=== PATIENT | male | born 1955 | race Caucasian/White ===

== ENCOUNTER → 2021-07-07 14:06 | Outpatient (BNVA) | payer SELFPAY | PROVIDERS: Visit Provider Nurse Practitioner Family | DX: I50.9 Heart failure, unspecified (principal) | CPT/HCPCS: 71046 ==

== ENCOUNTER 2021-07-07 15:49 | Inpatient (IN) | payer SELFPAY ==
[2021-07-07] VITALS (10 sets, daily range): BP systolic 118–133; BP diastolic 79–93; PULSE 89–101; RESP 18–20; TEMP 36–37; O2SAT 97–98; BMI 29.4
--- NOTE | 2021-07-07 16:21 | XRR_ITS ---
PROCEDURE INFORMATION: Exam: XR Chest Exam date and time: 07/07/2021 4:21 PM Age: 66 years old Clinical indication: Cough and dyspnea; Additional info: Dyspnea/cough TECHNIQUE: Imaging protocol: XR of the chest. Views: 1 view. Total images: 1 COMPARISON: CR XR chest 2V* [id number] 07/07/2021 2:05 PM FINDINGS: Lungs: No visible active interstitial or alveolar airspace disease. COPD/chronic bronchitis. Pleural spaces: Unremarkable. No pleural effusion. No pneumothorax. Heart/Mediastinum: Marked cardiomegaly. Arteriosclerosis. Bones/joints: Unremarkable. XR/XR chest 1V portable [id number] IMPRESSION: 1. Nonacute. 2. Marked cardiomegaly.
--- NOTE | 2021-07-07 16:22 | ECG_ITS ---
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1955 Requested By: Jorgito Nelson Order Number: [id number] Reading MD: ANDREEA ARVIZU Measurements Intervals [place] Rate: 98 P: 51 FL: 168 QRS: 51 QRSD: 101 T: 89 QT: 341 QTc: 436 Interpretive Statements SINUS RHYTHM WITH OCCASIONAL VENTRICULAR PREMATURE COMPLEXES LEFT ATRIAL ENLARGEMENT [-0.15mV P-WAVE IN V1/V2] PROBABLE INFERIOR MYOCARDIAL INFARCTION , PROBABLY OLD [35 ms Q WAVE IN II/aVF] No previous ECG available for comparison Electronically Signed On 07-07-2021 21:07:23 CDT by ANDREEA ARVIZU [id number]
[2021-07-07 16:41] LABS: Basophils # 0.1 10^3/uL (0.0-0.1); Basophils % 0.7 %; Eosinophils % 0.1 %; Hematocrit 52.8 % (42.0-52.0); Hemoglobin 17.7 g/dL (11.7-16.6); Lymphocytes # 1.6 10^3/uL (0.8-4.8); Mean Corpuscular HGB Conc 33.5 g/dL (30.0-36.0); Mean Corpuscular Hemoglobin 31.2 pg (28.0-34.0); Mean Platelet Volume 11.4 fL (7.4-10.4); Monocytes # 0.8 10^3/uL (0.2-0.9); Monocytes % 11.1 %; Neutrophils % 66.7 %; Nucleated Red Blood Cells % 0 %; Platelet Count 150 10^3/cmm (130-400); Red Blood Count 5.68 10^6/uL (4.1-5.3); Red Cell Distribution Width 14.4 % (12.1-15.1); White Blood Count 7.5 10^3/uL (4.0-10.0)
--- NOTE | 2021-07-07 16:42 | W.ED.GENADLT ---
HPI - General Adult General: Chief complaint: General Medical Stated complaint: Swollen feet,Fluid, Sent by [facility] Time Seen by Provider: 07/07/21 15:58 History of Present Illness: HPI narrative: 66-year-old male presented to the ER from one of the local clinics. He was seen there for swelling in his legs which been getting progressively worse the last couple of weeks he has some skin breakdown and drainage she denies any fever sweats or chills he has noticed a little bit of shortness of breath lately but has no orthopnea. He has no known history of coronary disease not had any chest pain denies any fever sweats or chills. No family history of coronary disease patient is not a smoker and is not diabetic. Onset (ago): week(s) Severity: moderate Relieving factors: none Exacerbating factors: none Associated symptoms: Deny chest pain, confusion, cough, diaphoresis, decreased appetite, dyspnea, fevers/chills, headache(s), malaise, nausea, rash, palpitations, seizures, short of breath, syncope, vomiting or weakness Review of Systems Const: Denies: malaise or diaphoresis ENMT: Denies: throat pain, ear or mastoid pain, nasal discharge or nasal congestion Card: Denies: chest pain, palpitations or syncope Resp: Denies: dyspnea GI: Denies: nausea or vomiting : Denies: flank pain, dysuria, urinary frequency or urinary urgency Skin/Breast: Denies: rash Neuro: Denies: headache(s) or confusion PFSH ED PFSH: Medical History (Updated 07/13/21 @ 07:07 by Jorgito Lujan DO) Abnormal transaminases Alcoholism Dilated cardiomyopathy Elevated troponin Rheumatic fever/heart disease Swelling of lower limb Surgical History (Updated 07/07/21 @ 20:04 by Elias Sprague MD) No significant past surgical history Family History (Updated 07/07/21 @ 20:15 by Elias Sprague MD) Other CAD (coronary artery disease) Congestive heart failure (CHF) Social History Smoking and tobacco status: former smoker Second hand smoke exposure: No Smoking risk assessment/counseling performed?: No Alcohol intake: never Desire information about alcohol rehabilitation?: No Counseling given: No Desire information about substance/drug rehabilitation?: No Counseling given: No Adopted: No Caregiver/support person: No Lives independently: Yes Household members: none Housing: House Marital status: Single Number of children: 0 Highest education level completed: High School Graduate service: No History of recent travel: No Physical Exam Const: COMMON NORMALS: no acute distress GENERAL APPEARANCE: cooperative and comfortable ORIENTATION/CONSCIOUSNESS: Yes awake, Yes oriented to person, Yes oriented to place and Yes oriented to time HENMT: COMMON NORMALS: normocephalic, atraumatic and hearing grossly normal bilaterally HEAD & SCALP: normocephalic and atraumatic Neck/C-Spine: COMMON NORMALS: no JVD Resp: COMMON NORMALS: normal respiratory effort, No retractions, No use of accessory muscles and clear to auscultation bilaterally AUSCULTATION: clear to auscultation bilaterally Cardio: COMMON NORMALS: no JVD, regular rate, regular rhythm and No murmurs present (Cardio) RATE: regular rate RHYTHM: regular rhythm GI: COMMON NORMALS: Soft to palpation and No hepatosplenomegaly present AUSCULTATION: Yes normoactive bowel sounds PALPATION: Yes Soft to palpation, No Tenderness to palpation present (GI), No Guarding due to palpation present (GI) and Yes No hepatosplenomegaly present Extremity: COMMON NORMALS: no calf tenderness GENERAL: Yes edema OTHER: +3 edema lower extremities with some mild skin breakdown no evidence of induration or erythema Neuro: SENSORIUM/ORIENTATION: Yes oriented to person, Yes oriented to place and Yes oriented to time Skin: COMMON NORMALS: no rashes or lesions noted GENERAL SKIN EXAM: no rashes or lesions noted Course Vital Signs: Vital signs: Vital Signs Temperature 97.5 F L 07/10/21 09:50 Pulse Rate 87 07/10/21 09:50 Respiratory Rate 20 H 07/10/21 09:50 Blood Pressure 111/77 07/10/21 09:50 Pulse Oximetry 97 07/10/21 09:50 MDM - General Adult MDM Narrative: Medical decision making narrative: Reviewed labs and x-ray. Will admit with elevated troponin congestive heart failure.Discussed with the patient and the hospitalist orders written Lab Data: Labs: Lab Results 07/07/21 07/07/21 07/07/21 Range/Units 16:31 16:31 16:31 WBC 7.5 (4.0-10.0) 10^3/ uL RBC 5.68 H (4.1-5.3) 10^6/u L Hgb 17.7 H (11.7-16.6) g/dL Hct 52.8 H (42.0-52.0) % MCV 93.0 (80-94) fl MCH 31.2 (28.0-34.0) pg MCHC 33.5 (30.0-36.0) g/dL RDW 14.4 (12.1-15.1) % Plt Count 150 (130-400) 10^3/c mm MPV 11.4 H (7.4-10.4) fL Neut % (Auto) 66.7 % Lymph % (Auto) 21.0 % [place] % (Auto) 11.1 % Eos % (Auto) 0.1 % Baso % (Auto) 0.7 % Neut # (Auto) 5.00 (1.8-7.7) 10^3/u L Lymph # (Auto) 1.6 (0.8-4.8) 10^3/u L [place] # (Auto) 0.8 (0.2-0.9) 10^3/u L Eos # (Auto) 0.0 (0.0-0.8) 10^3/u L Baso # (Auto) 0.1 (0.0-0.1) 10^3/u L Nucleated RBC % (a uto) 0 % Nucleated RBCs # 0.0 /100WBC D-Dimer (0-0.59) ug/mIFE U Sodium 132 L (136-145) mmol/L Potassium 4.6 (3.5-5.1) mmol/L Chloride 99 (98-107) mmol/L Carbon Dioxide 19 L (22-29) mmol/L Anion Gap 18.6 (5-19) BUN 28 H (8-23) mg/dL Creatinine 1.2 (0.7-1.2) mg/dL GFR Calculation 60.4 L (90-130) mL/min Glucose 117 H (65-115) mg/dL Calculated Osmolal ity 281 L (285-295) mOsm/k g Calcium 9.0 (8.5-10.5) mg/dL Total Bilirubin 1.1 (0.15-1.2) mg/dL AST 158 H (0-40) U/L ALT 123 H (0-41) U/L Alkaline Phosphata se 133 H (40-130) IU/L Troponin T Baselin e 733 H* (0-15) ng/L NT-Pro-B Natriuret Pep 38942 H (0-125) pg/mL Total Protein 5.6 L (6.6-8.7) g/dL Albumin 3.7 (3.5-5.2) g/dL Globulin 1.9 (1.3-4.6) g/dL Urine Color (Yellow) Urine Appearance (CLEAR) Urine pH (5-7) Ur Specific Gravit y (1.005-1.030) Urine Protein (Negative) Urine Glucose (UA) (Normal) Urine Ketones (Negative) Urine Blood (Negative) Urine Nitrate (Negative) Urine Bilirubin (Negative) Urine Urobilinogen (Negative) mg/dL Ur Leukocyte Marilyn ase (Negative) Urine RBC (0-2) /hpf Urine WBC (0-5) /hpf Ur Squamous Epith Cells (0-5) /hpf Amorphous Sediment Urine Bacteria (NONE) /hpf Urine Opiates Scre en (Negative) ng/mL Ur Barbiturates Sc reen (Negative) ng/mL Ur Phencyclidine S crn (Negative) ng/mL Ur Amphetamines Sc reen (Negative) ng/mL U Benzodiazepines Scrn (Negative) ng/mL Urine Cocaine Scre en (Negative) ng/mL U Marijuana (THC) Screen (Negative) ng/mL 07/07/21 07/07/21 07/07/21 Range/Units 16:31 18:01 18:01 WBC (4.0-10.0) 10^3/ uL RBC (4.1-5.3) 10^6/u L Hgb (11.7-16.6) g/dL Hct (42.0-52.0) % MCV (80-94) fl MCH (28.0-34.0) pg MCHC (30.0-36.0) g/dL RDW (12.1-15.1) % Plt Count (130-400) 10^3/c mm MPV (7.4-10.4) fL Neut % (Auto) % Lymph % (Auto) % [place] % (Auto) % Eos % (Auto) % Baso % (Auto) % Neut # (Auto) (1.8-7.7) 10^3/u L Lymph # (Auto) (0.8-4.8) 10^3/u L [place] # (Auto) (0.2-0.9) 10^3/u L Eos # (Auto) (0.0-0.8) 10^3/u L Baso # (Auto) (0.0-0.1) 10^3/u L Nucleated RBC % (a uto) % Nucleated RBCs # /100WBC D-Dimer 2.65 H (0-0.59) ug/mIFE U Sodium (136-145) mmol/L Potassium (3.5-5.1) mmol/L Chloride (98-107) mmol/L Carbon Dioxide (22-29) mmol/L Anion Gap (5-19) BUN (8-23) mg/dL Creatinine (0.7-1.2) mg/dL GFR Calculation (90-130) mL/min Glucose (65-115) mg/dL Calculated Osmolal ity (285-295) mOsm/k g Calcium (8.5-10.5) mg/dL Total Bilirubin (0.15-1.2) mg/dL AST (0-40) U/L ALT (0-41) U/L Alkaline Phosphata se (40-130) IU/L Troponin T Baselin e (0-15) ng/L NT-Pro-B Natriuret Pep (0-125) pg/mL Total Protein (6.6-8.7) g/dL Albumin (3.5-5.2) g/dL Globulin (1.3-4.6) g/dL Urine Color Yellow (Yellow) Urine Appearance Clear (CLEAR) Urine pH 5 (5-7) Ur Specific Gravit y 1.020 (1.005-1.030) Urine Protein Trace (Negative) Urine Glucose (UA) Norm (Normal) Urine Ketones Negative (Negative) Urine Blood Neg (Negative) Urine Nitrate Negative (Negative) Urine Bilirubin 1+ H (Negative) Urine Urobilinogen 1 H (Negative) mg/dL Ur Leukocyte Marilyn ase Negative (Negative) Urine RBC None (0-2) /hpf Urine WBC None (0-5) /hpf Ur Squamous Epith Cells None (0-5) /hpf Amorphous Sediment Not Reportable Urine Bacteria 1+ H (NONE) /hpf Urine Opiates Scre en Negative (Negative) ng/mL Ur Barbiturates Sc reen Negative (Negative) ng/mL Ur Phencyclidine S crn Negative (Negative) ng/mL Ur Amphetamines Sc reen Negative (Negative) ng/mL U Benzodiazepines Scrn Negative (Negative) ng/mL Urine Cocaine Scre en Negative (Negative) ng/mL U Marijuana (THC) Screen Negative (Negative) ng/mL Discharge Plan Discharge Patient Disposition: Admitted As Inpatient Admit Provider: Elias Sprague Clinical Impression: Elevated troponin, Congestive heart failure, Bilateral edema of lower extremity, Elevated transaminase level Condition: Stable Discharge Diet: Cardiac Discharge Activity: Resume usual activity Coding Level of Care Code ED Sql Server Dba Developer for New Fwd Exam Comprehensive
[2021-07-07 17:04] LABS: Troponin(5th) Baseline 733 ng/L (0-15)
[2021-07-07 17:12] LABS: Alanine Aminotransferase 123 U/L (0-41); Albumin Level 3.7 g/dL (3.5-5.2); Alkaline Phosphatase 133 IU/L (40-130); Blood Urea Nitrogen 28 mg/dL (8-23); Carbon Dioxide 19 mmol/L (22-29); Chloride 99 mmol/L (98-107); Globulin 1.9 g/dL (1.3-4.6); Glomerular Filtration Rate 60.4 mL/min (90-130); Glucose 117 mg/dL (65-115); NT Pro B Type Natriuretic Pept 11324 pg/mL (0-125); Osmolality Calculated 281 mOsm/kg (285-295); Sodium 132 mmol/L (136-145); Total Bilirubin 1.1 mg/dL (0.15-1.2); Total Protein 5.6 g/dL (6.6-8.7)
[2021-07-07 17:13] LABS: Anion Gap 18.6 (5-19); Aspartate Amino Transferase 158 U/L (0-40); Potassium 4.6 mmol/L (3.5-5.1)
--- NOTE | 2021-07-07 18:00 | PC.NURSE ---
URINE SPECIMEN COLLECTED VIA STRAIGHT CATH PATIENT TRIED TO VOID AND COULD NOT. UPON INSERTION, PATIENT VOIDED 150 ML. PATIENT TOLERATED WELL. VISITOR AT BEDSIDE. PATIENT HAS NO FURTHER NEEDS AT THIS TIME.
--- NOTE | 2021-07-07 18:22 | ECG_ITS ---
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1955 Requested By: Jorgito Nelson Order Number: [id number] Reading MD: ANDREEA ARVIZU Measurements Intervals [place] Rate: 89 P: 52 DC: 165 QRS: 37 QRSD: 102 T: 88 QT: 367 QTc: 448 Interpretive Statements SINUS RHYTHM LEFT ATRIAL ENLARGEMENT [-0.15mV P-WAVE IN V1/V2] INFERIOR MYOCARDIAL INFARCTION , PROBABLY OLD [40+ ms Q WAVE AND/OR ST/T ABNORMALITY IN II/aVF] Compared to ECG 07/07/2021 16:34:49 Ventricular premature complex(es) no longer present Myocardial infarct finding still present Electronically Signed On 07-07-2021 21:09:38 CDT by ANDREEA ARVIZU [email or web address], [id number]
[2021-07-07 18:36] LABS: Add Urine Microscopic? YES; Bilirubin Urine 1+ (Negative); Blood Urine Neg (Negative); Glucose Urine UA Norm (Normal); Ketones Urine Negative (Negative); Leukocyte Esterase Urine Negative (Negative); Nitrate Urine Negative (Negative); Protein Urine Trace (Negative); Urine Appearance Clear (CLEAR); Urine Color Yellow (Yellow); Urobilinogen Urine 1 mg/dL (Negative); pH Urine 5 (5-7)
[2021-07-07 18:37] LABS: Bacteria Urine 1+ /hpf
--- NOTE | 2021-07-07 18:38 | ECG_ITS ---
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 Interpretive Statements NAME OF STUDY: LEXISCAN SESTAMIBI STRESS TEST INDICATION: Elevated Troponin, PROCEDURE: At the baseline, the EKG revealed normal sinus rhythm with a poor R wave progression. Some nonspecific T wave changes. The baseline blood pressure was 116/86 mm Hg with a heart rate of 88 beats/min. Lexiscan was infused over a period of 20 seconds. A total of 0.4 milligrams of Lexiscan was infused. The stress phase was continued for a total of 5 minutes. Heart rate at the end of the stress phase was 92 with a blood pressure 116/85. The EKG at the peak infusion revealed no significant changes. Sestamibi was injected 20 seconds after the Lexiscan infusion. Blood pressure at the end of the recovery phase was 118/82 with a heart rate of 91 per minute. CONCLUSION: 1. No significant EKG changes with the LexiScan infusion 2. No LexiScan induced chest pain or cardiac arrhythmia 3. Normal blood pressure and heart rate response 4. Sestamibi/sestamibi perfusion scan pending; see separate report. Electronically Signed On 07-09-2021 0:40:02 CDT by Rajendra Merritt M.D. [id number]
[2021-07-07 19:20] LABS: Troponin 5 2HR Delta -21.1 ABS# (0-10)
[2021-07-07 19:21] LABS: Troponin 5 2HR 711.9 ng/L (0-15)
--- NOTE | 2021-07-07 19:23 | PM.HP ---
Providers/Chief Complaint Chief Complaint: Swollen feet,Fluid, Sent by [facility] History of Present Illness Emory Hutchins is a 66 year old male with no real follow-up with a primary care provider in couple of years presented to the ER from primary care's office. He was seen for the first time today with complains of bilateral leg swelling and discoloration for approximately 4 weeks and weeping for 1 week. Says he has some SOB with activity. Says symptoms are better in the morning and get worse through out the day. Having an increasingly difficult time walking due to swelling. Does not have a PCP and denies any daily medications. Does report history of rheumatic fever and murmur as a child. Denies pain in legs, chest pain, and weight gain. No recent history of URI symptoms. 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 No fever. No cellulitic changes. No past h/o similar LE edema. No recent changes in urien output. no dysuria. No h/o hepatitis. Drinks daily, including wine and beer. Reports making wine at home with several fruits that he collects. 12-14 oz glass consumption daily. No h/o binge drinking. Blood work in the ER showed a white count 7.5, hemoglobin of 17.7, platelet count of 150, sodium of 132, chloride of 99, bicarb of 19 with creatinine of 1.2, BUN of 28, AST/ALT of 158/123 with baseline troponin of 733 and a delta of -21 in 2 hours, proBNP of 11,000, UA negative for nitrite or leukoesterase but 1+ bacteria and chest x-ray imaging as below. Review of Systems General: Reports: 10 or more systems reviewed and unremarkable except in HPI and below Const: Denies: fever(s), chills, body aches, change in appetite, change in weight, malaise, night sweats, diaphoresis, change in sleep pattern, daytime sleepiness or snoring Eyes: Denies: change in vision, blurry vision, photophobia, eye discomfort or eye discharge ENMT: Denies: throat pain, enlarged tonsils, hoarseness, mouth pain, oral sores, dry mouth, tinnitus, nasal congestion or post nasal drip Card: Denies: chest pain, palpitations, irregular heart rhythm, edema, swelling of feet/ankles, lightheadedness, syncope, pre-syncope, dyspnea on exertion, orthopnea, leg pain with exertion or acrocyanosis Resp: Denies: dyspnea, productive cough, non-productive cough, wheezing, stridor, pain on inspiration, change in phlegm color, hemoptysis or chest congestion GI: Denies: abdominal pain, nausea, vomiting, hematemesis, coffee ground emesis, dysphagia, heartburn, diarrhea, constipation, bloating, GI cramping, change in bowel habits, pain on defecation, hematochezia or melena : Denies: flank pain, difficulty urinating, dysuria, urinary frequency, urinary urgency, urinary hesitancy, urinary dribbling, difficulty starting urination, change in urine stream, nocturia or hematuria Musc: Denies: neck pain, back pain, extremity pain, joint pain, joint swelling, joint redness, joint stiffness or limited range of motion Neuro: Denies: headache(s), numbness in extremities, weakness in extremities, sensory changes, lack of coordination, difficulty walking, frequent falls, dizziness, vertigo, confusion, Slurred speech present, difficulty communicating thoughts or seizure-like activity Psych: Denies: anxiety, depression, mood swings, panic attacks, hopelessness or irritability Endo: Denies: polyuria, polydipsia, tired all the time, cold intolerance, excessive sweating, flushing or heat intolerance Joey/Lymph: Denies: easy bruising or easy bleeding All/Imm: Denies: tongue swelling, facial swelling or acute wheezing Medications/Allergies Home Medications Medication Instructions Recorded Confirmed Last Taken Type aspirin 325 mg PO DAILY 07/07/21 07/07/21 07/06/21 History Allergies Allergy/AdvReac Type Severity Reaction Status Date / Time No Known Allergies Allergy Verified 07/07/21 21:06 PFSH Acute PFSH: Medical History (Updated 07/08/21 @ 14:34 by Elias Sprague MD) Alcoholism Rheumatic fever/heart disease Surgical History (Updated 07/07/21 @ 20:04 by Elias Sprague MD) No significant past surgical history Family History (Updated 07/07/21 @ 20:15 by Elias Sprague MD) Other CAD (coronary artery disease) Congestive heart failure (CHF) Social History Smoking and tobacco status: former smoker Second hand smoke exposure: No Smoking risk assessment/counseling performed?: No Alcohol intake: never Desire information about alcohol rehabilitation?: No Counseling given: No Desire information about substance/drug rehabilitation?: No Counseling given: No Adopted: No Caregiver/support person: No Lives independently: Yes Household members: none Housing: House Marital status: Single Number of children: 0 Highest education level completed: High School Graduate service: No History of recent travel: No Vitals/I&O/Wt Last Vital Signs Temp 96.8 F L 07/07/21 15:56 Pulse 101 H 07/07/21 18:07 Resp 18 07/07/21 16:10 BP 122/80 07/07/21 18:07 Pulse Ox 97 07/07/21 18:07 Weight last 48 hrs Weight 109.769 kg Physical Exam Narrative: EXAM NARRATIVE: General: No acute distress, AO x3 HEENT: PERRLA, pupils bilaterally equal and reactive Chest: Normal vesicular breath sounds, no added sounds, equal good air entry bilaterally CVS: S1-S2 regular, no murmurs, no tachycardia, no gallops, no rubs Abdomen: Soft, nontender, no organomegaly, bowel sounds present Neuro: No focal deficits, no facial deformity, AO x3, power 5/5 in all limbs Ext: B/L LE edema 3+ pitting up to knee level, changes of stasis dermatitis. No gross cellulitic changes. Data : 07/08/21 04:30 07/08/21 04:30 A&P Assessment and plan (1) Swelling of lower limb: Status: Acute (2) Elevated troponin: Status: Acute (3) Dilated cardiomyopathy: Status: Suspected (4) Congestive heart failure: Status: Acute (5) Abnormal transaminases: Status: Acute (6) Alcoholism: Status: Acute Additional A&P Information 66-year-old gentleman with no significant past medical history and follow-up with primary care provider presented to the ER and found to have elevated troponin, elevated proBNP, elevated D-dimer and chest x-ray suggestive of cardiomegaly. Lower limb swelling: Unlikely cellulitis as patient does not have any fever or erythema.Changes appear c/w stasis dermatitis Cannot rule out DVT or evenous insufficiency. Check D-dimer first if elevated will do lower limb Dopplers. Could be secondary to congestive heart failure. Possible dilated cardiomyopathy/congestive heart failure: Suggested secondary to elevated proBNP and troponin levels. Check echocardiogram, Lexiscan in a.m., Check HbA1c, lipid panel, blood cultures, TSH, procalcitonin, urine drug screen. N.p.o. after midnight. Lasix 40 mg IV twice daily. Coreg 3.125 mg twice daily, aspirin 81 mg oral daily. Strict input output charting. Daily weights. Check D-dimer. If elevated will check lower limb Dopplers and CTA to rule out PE. Cannot rule out DVT. Abnormal transaminases: Could be secondary to h/o alcohol use vs 2/2 dilated cardiomyopathy and congestive heart failure. Check hepatitis panel, alcohol level, urine drug screen. If needed will do liver ultrasound. For now we will hold off. Full code. Cardiac diet. Lovenox for DVT prophylaxis. Protonix for PUD prophylaxis. Attestations Medical Necessity Statement*: Admission for more than 2 midnights for evaluation of elevated proBNP, elevated troponin, ruling out cardiomyopathy, needing IV diuresis Time Spent in Patient Care: Greater than 35 minutes (>than 50% of time spent in counselling and/or direct pt care on unit). Coding Level of Care Code Acute Pressure Steamer Tender for New Bach Diagnoses Swelling of lower limb M79.89 Elevated troponin R77.8 Dilated cardiomyopathy I42.0 Congestive heart failure I50.9 Abnormal transaminases R74.8 Alcoholism F10.20
[2021-07-07 19:34] LABS: Amphetamines Screen Urine Negative (Negative); Barbiturates Screen Urine Negative (Negative); Benzodiazepines Screen Urine Negative (Negative); Cocaine Screen Urine Negative (Negative); Opiate Screen Urine Negative (Negative); PCP Screen Urine Negative (Negative); THC Screen Urine Negative (Negative)
[2021-07-07 19:39] LABS: D Dimer 2.65 ug/mIFEU (0-0.59)
[2021-07-07 19:41] LABS: Iron 52 ug/dL (59-158); Percent Saturation 22.1 % (20-50); Total Iron Binding Capacity 235 mcg/dl; Unsaturated Iron Binding 183 ug/dL (112-347)
[2021-07-07 19:49] LABS: Thyroid Stimulating Hormone 2.65 uIU/mL (0.27-4.20)
[2021-07-07] MEDS: FUROsemide 10 mg/mL SDV 4mL 40 MG IVP (20:00)
--- NOTE | 2021-07-07 20:01 | CTR_ITS ---
PROCEDURE INFORMATION: Exam: CTA Chest With Contrast Exam date and time: 07/07/2021 8:01 PM Age: 66 years old Clinical indication: Shortness of breath; Additional info: Elevated dimer, elevated troponin TECHNIQUE: Imaging protocol: Computed tomographic angiography of the chest with contrast. 3D rendering (Not supervised by radiologist): MIP and/or 3D reconstructed images were created by the technologist. Total images: 992 Radiation optimization: All CT scans at this facility use at least one of these dose optimization techniques: automated exposure control; mA and/or kV adjustment per patient size (includes targeted exams where dose is matched to clinical indication); or iterative reconstruction. Contrast material: OMNI 350; Contrast volume: 91 ml; Contrast route: INTRAVENOUS (IV); COMPARISON: CR XR chest 1V portable [id number] 07/07/2021 4:27 PM RADIATION DOSE METRICS: Total DLP (mGy-cm): 674.08 FINDINGS: Pulmonary arteries: No visible evidence of pulmonary embolism/pulmonary arterial thrombus. Aorta: The thoracic aorta is nonaneurysmal. Mild arterial sclerotic disease. Veins: Early filling with contrast of the inferior vena cava and hepatic veins often seen with right-sided heart failure. Lungs: No visible consolidated alveolar airspace disease. Findings of mild COPD/chronic bronchitis. Small 3 mm pulmonary nodule medially adjacent to the minor fissure right middle lobe (ease series 2, image 248). This may represent a interfissure lymph node. Pleural spaces: Small right pleural effusion. Heart: Marked cardiomegaly. No visible pericardial effusion. Coronary artery disease. Calcified mitral annulus. Lymph nodes: No definitive evidence of active mediastinal or hilar lymphadenopathy. Intraperitoneal space: Small volume intraperitoneal ascites. Bones/joints: No visible active or acute osseous pathology. In mild scoliotic curvature. Age-appropriate degenerative disease of the spine. Soft tissues: Unremarkable. Other findings: Mild respiratory motion artifact. CT/CT angio chest PE protcl [id number] IMPRESSION: 1. No visible evidence of pulmonary embolism/pulmonary arterial thrombus. 2. Marked cardiomegaly. 3. Coronary artery disease. 4. Small right pleural effusion. 5. Early filling with contrast of the inferior vena cava and hepatic veins often seen with right-sided heart failure. 6. Small volume intraperitoneal ascites. 7. Small 3 mm pulmonary nodule right middle lobe. For patients at low risk (minimal or absent history of smoking and of other known risk factors), no routine follow-up is indicated. For patients at high risk (history of smoking or of other known risk factors), consider optional CT Chest at 12 months. (Reference: Meron). REFERENCES: Meron Lobo, et al. Guidelines for Management of Incidental Pulmonary Nodules Detected on CT Images: From the Fleischner Society 2017. Radiology. 2017;284(1):228-243. Radiation Dose CTDIVOL = (mGy): DLP = 674.08 (mGy-cm)
[2021-07-07 20:13] LABS: Procalcitonin 0.22 ng/mL (0-0.5)
[2021-07-07] MEDS: iohexol 350 mg/mL 100 mL Btl IV (20:23)
[2021-07-07 20:30] LABS: Alcohol Level < 10 mg/dL (0-10)
--- NOTE | 2021-07-07 20:38 | PC.NURSE ---
i reported low temp 97.3 to nurse
[2021-07-07] MEDS: enoxaparin 40 mg/0.4 mL Syringe SUBCUT (21:03)
[2021-07-07] MEDS: famotidine 20 mg/2 mL INJ IVP (21:03)
[2021-07-08] VITALS (8 sets, daily range): BP systolic 101–118; BP diastolic 75–85; PULSE 85–90; RESP 18–25; TEMP 36.7–36.8; O2SAT 96–98
--- NOTE | 2021-07-08 01:19 | PC.NURSE ---
Dr. Sprague notified of Lasix being given in ED 40 mg at 1999. Notified of another dose due at 2014. Ordered to hold dose.
--- NOTE | 2021-07-08 04:38 | PC.NURSE ---
Shift Note Frequent safety and comfort rounds continue. Orders and/or nursing care completed as indicated. Patient monitored for response to intervention and treatment(s). Education provided includes fluid restriction and urine output measurement. Patient and/or client services representative verbalized understanding. Will continue to monitor.
[2021-07-08 05:03] LABS: Basophils # 0.1 10^3/uL (0.0-0.1); Basophils % 0.7 %; Eosinophils % 0.4 %; Hematocrit 49.6 % (42.0-52.0); Hemoglobin 16.3 g/dL (11.7-16.6); Lymphocytes # 1.7 10^3/uL (0.8-4.8); Lymphocytes % 24.6 %; Mean Corpuscular HGB Conc 32.9 g/dL (30.0-36.0); Mean Corpuscular Hemoglobin 30.8 pg (28.0-34.0); Mean Corpuscular Volume 93.8 fl (80-94); Mean Platelet Volume 11.8 fL (7.4-10.4); Monocytes # 0.5 10^3/uL (0.2-0.9); Monocytes % 7.4 %; Neutrophils # 4.66 10^3/uL (1.8-7.7); Neutrophils % 66.3 %; Nucleated Red Blood Cells % 0 %; Platelet Count 129 10^3/cmm (130-400); Red Blood Count 5.29 10^6/uL (4.1-5.3); Red Cell Distribution Width 14.3 % (12.1-15.1)
[2021-07-08 05:10] LABS: Alanine Aminotransferase 97 U/L (0-41); Albumin Level 3.2 g/dL (3.5-5.2); Alkaline Phosphatase 106 IU/L (40-130); Aspartate Amino Transferase 118 U/L (0-40); Blood Urea Nitrogen 25 mg/dL (8-23); Calcium 8.4 mg/dL (8.5-10.5); Carbon Dioxide 25 mmol/L (22-29); Chloride 102 mmol/L (98-107); Chol HDL Ratio 4.19 mg/dL (1.0-5.00); Cholesterol 113 mg/dL (0-200); Globulin 2.4 g/dL (1.3-4.6); Glomerular Filtration Rate 66.8 mL/min (90-130); Glucose 92 mg/dL (65-115); HDL Cholesterol 27 mg/dL (60-100); LDL Cholesterol Calculated 72 mg/dL (50-129); Magnesium 1.7 mg/dL (1.7-2.3); Osmolality Calculated 288 mOsm/kg (285-295); Phosphorus 3.3 mg/dL (2.5-4.5); Sodium 137 mmol/L (136-145); Total Bilirubin 0.9 mg/dL (0.15-1.2); Total Protein 5.6 g/dL (6.6-8.7); Triglycerides 70 mg/dL (0-150); VLDL Cholestrol Calculation 14 mg/dL (0-30)
[2021-07-08 05:11] LABS: Anion Gap 13.9 (5-19); Potassium 3.9 mmol/L (3.5-5.1)
[2021-07-08 05:26] LABS: Estmated Average Glucose 117; Hemoglobin A1C 5.7 % (4.0-6.0)
[2021-07-08] MEDS: regadenoson 0.4 Mg/5 ml Syringe IVP (08:17)
[2021-07-08] MEDS: multivitamin therapeutic Tablet 1 TAB PO (09:54)
[2021-07-08] MEDS: folic acid 1 mg Tablet PO (09:54)
[2021-07-08] MEDS: thiamine 100 mg Tablet PO (09:54)
[2021-07-08] MEDS: carvedilol 3.125 mg Tablet PO ×2 (09:54→18:03)
[2021-07-08] MEDS: ferrous gluconate 324 mg Tablet PO ×2 (09:54→18:03)
[2021-07-08] MEDS: famotidine 20 mg/2 mL INJ IVP ×2 (09:55→20:21)
--- NOTE | 2021-07-08 11:50 | PC.CHAP ---
Pastoral Care Encounter/Spiritual Assessment Type of Contact [] Declined wrapping clerk visit [] Patient/Family/Request visit [] Outpatient visit [] Follow-up visit [] Physician referral [] Code/Alert [x] Routine visit [] Staff referral [] Actively dying [] Patient sleeping [] Family support [] [] Out of room [] Palliative care [] [x] Receiving care in room [] Pre-surgical visit [] Trauma [] Long length of stay [] ICU visit [] Other: Relational/Emotional Strength [x] Patient feels connected with others/family/visitors/staff [] Distress [] Loneliness/isolation [] Abandonment Spirituality of Patient [] Person of Stacy [] Attends Christian of their Stacy [] Believes in Prayer [] Reads Bible or Sikhism materials [] There are 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 [] Prayer [] Active listening [] Non-anxious presence [] Spiritual/emotional support [] Crisis/trauma care [] Spiritual counseling [] Bereavement support [] Provided bereavement packet [] Provided Bible/devotional materials [] Provided toy/stuffed animal, coloring book to patient or family member [] Provided Communion [] Anointing/[place] [] Salvation [] Completed spiritual assessment [] Other: Impact on Illness or Injury [] Angry [] Fearful [] Anxious [] Often cries [] Exhaustion [] Unable to work [] Unable to attend rastafarian [] Unable to walk/stand [] Unable to read [] Unable to drive [] Unable to eat/drink [] Unable to sleep [] Unable to be with family [] Patient intubated [] Other: Summary he is going new meds has a good attitude and is going home Time spent with patient 10 mins
--- NOTE | 2021-07-08 14:35 | PM.PN ---
Subjective Subjective: Interval history: No acute events overnight. Has remained hemodynamically stable and afebrile. Around -2.8 L since admission. Seen post lexiscan. States feeling better but still having difficulty with lying down in bed. Vitals/I&O/Wt Last Vital Signs Temp 98.3 F 07/08/21 04:00 Pulse 90 07/08/21 08:57 Resp 18 07/08/21 04:00 BP 118/82 07/08/21 08:57 Pulse Ox 97 07/08/21 04:00 07/07/21 07/08/21 07/08/21 22:59 06:59 14:59 Intake Total 240 / 240 Output Total 1630 / 1630 1375 / 3005 Balance -1630 / -1630 -1135 / -2765 Weight last 48 hrs Weight 105.687 kg Weight 106.231 kg Weight 109.769 kg Physical Exam Narrative: EXAM NARRATIVE: General: No acute distress, AO x3 HEENT: PERRLA, pupils bilaterally equal and reactive Chest: Normal vesicular breath sounds, b/l lower zone ine crackles, equal good air entry bilaterally CVS: S1-S2 regular, soft PSM at apex and 2nd ICS para sternal 2/6, no tachycardia, no gallops, no rubs Abdomen: Soft, nontender, no organomegaly, bowel sounds present Neuro: No focal deficits, no facial deformity, AO x3, power 5/5 in all limbs Ext: B/L LE edema 3+ pitting up to knee level, changes of stasis dermatitis. No gross cellulitic changes. Data : 07/08/21 04:30 07/08/21 04:30 Other Labs: Laboratory Results WBC 7.0 10^3/uL (4.0-10.0) 07/08/21 04:30 RBC 5.29 10^6/uL (4.1-5.3) 07/08/21 04:30 Hgb 16.3 g/dL (11.7-16.6) 07/08/21 04:30 Hct 49.6 % (42.0-52.0) 07/08/21 04:30 MCV 93.8 fl (80-94) 07/08/21 04:30 MCH 30.8 pg (28.0-34.0) 07/08/21 04:30 MCHC 32.9 g/dL (30.0-36.0) 07/08/21 04:30 RDW 14.3 % (12.1-15.1) 07/08/21 04:30 Plt Count 129 10^3/cmm (130-400) L 07/08/21 04:30 MPV 11.8 fL (7.4-10.4) H 07/08/21 04:30 Neut % (Auto) 66.3 % 07/08/21 04:30 Lymph % (Auto) 24.6 % 07/08/21 04:30 Wake % (Auto) 7.4 % 07/08/21 04:30 Eos % (Auto) 0.4 % 07/08/21 04:30 Baso % (Auto) 0.7 % 07/08/21 04:30 Neut # (Auto) 4.66 10^3/uL (1.8-7.7) 07/08/21 04:30 Lymph # (Auto) 1.7 10^3/uL (0.8-4.8) 07/08/21 04:30 Wake # (Auto) 0.5 10^3/uL (0.2-0.9) 07/08/21 04:30 Eos # (Auto) 0.0 10^3/uL (0.0-0.8) 07/08/21 04:30 Baso # (Auto) 0.1 10^3/uL (0.0-0.1) 07/08/21 04:30 Nucleated RBC % (auto) 0 % 07/08/21 04:30 Nucleated RBCs # 0.0 /100WBC 07/08/21 04:30 D-Dimer 2.65 ug/mIFEU (0-0.59) H 07/07/21 16:31 Sodium 137 mmol/L (136-145) 07/08/21 04:30 Potassium 3.9 mmol/L (3.5-5.1) 07/08/21 04:30 Chloride 102 mmol/L (98-107) 07/08/21 04:30 Carbon Dioxide 25 mmol/L (22-29) 07/08/21 04:30 Anion Gap 13.9 (5-19) 07/08/21 04:30 BUN 25 mg/dL (8-23) H 07/08/21 04:30 Creatinine 1.1 mg/dL (0.7-1.2) 07/08/21 04:30 GFR Calculation 66.8 mL/min (90-130) L 07/08/21 04:30 Glucose 92 mg/dL (65-115) 07/08/21 04:30 Estimat Average Glucose 117 07/08/21 04:30 Hemoglobin A1c 5.7 % (4.0-6.0) 07/08/21 04:30 Calculated Osmolality 288 mOsm/kg (285-295) 07/08/21 04:30 Calcium 8.4 mg/dL (8.5-10.5) L 07/08/21 04:30 Phosphorus 3.3 mg/dL (2.5-4.5) 07/08/21 04:30 Magnesium 1.7 mg/dL (1.7-2.3) 07/08/21 04:30 Iron 52 ug/dL (59-158) L 07/07/21 18:38 TIBC 235 mcg/dl 07/07/21 18:38 % Saturation 22.1 % (20-50) 07/07/21 18:38 Unsat Iron Binding 183 ug/dL (112-347) 07/07/21 18:38 Total Bilirubin 0.9 mg/dL (0.15-1.2) 07/08/21 04:30 AST 118 U/L (0-40) H 07/08/21 04:30 ALT 97 U/L (0-41) H 07/08/21 04:30 Alkaline Phosphatase 106 IU/L (40-130) 07/08/21 04:30 Troponin T Baseline 733 ng/L (0-15) H* 07/07/21 16:31 Troponin T 120 Minute 711.9 ng/L (0-15) H 07/07/21 18:38 Delta Troponin T -21.1 ABS# (0-10) L 07/07/21 18:38 Troponin T Hi Sens 6Hr 708.0 ng/L (0-15) H 07/07/21 22:31 Troponin T Hi Sens 6Hr Delta -25.0 ng/L (0-12) L 07/07/21 22:31 NT-Pro-B Natriuret Pep 61564 pg/mL (0-125) H 07/07/21 16:31 Total Protein 5.6 g/dL (6.6-8.7) L 07/08/21 04:30 Albumin 3.2 g/dL (3.5-5.2) L 07/08/21 04:30 Globulin 2.4 g/dL (1.3-4.6) 07/08/21 04:30 Triglycerides 70 mg/dL (0-150) 07/08/21 04:30 Cholesterol 113 mg/dL (0-200) 07/08/21 04:30 LDL Cholesterol, Calc 72 mg/dL (50-129) 07/08/21 04:30 Total VLDL Cholesterol 14 mg/dL (0-30) 07/08/21 04:30 HDL Cholesterol 27 mg/dL (60-100) L 07/08/21 04:30 Cholesterol/HDL Ratio 4.19 mg/dL (1.0-5.00) 07/08/21 04:30 Procalcitonin 0.22 ng/mL (0-0.5) 07/07/21 18:38 TSH 2.65 uIU/mL (0.27-4.20) 07/07/21 18:38 Urine Color Yellow (Yellow) 07/07/21 18:01 Urine Appearance Clear (CLEAR) 07/07/21 18:01 Urine pH 5 (5-7) 07/07/21 18:01 Ur Specific [place] 1.020 (1.005-1.030) 07/07/21 18:01 Urine Protein Trace (Negative) 07/07/21 18:01 Urine Glucose (UA) Norm (Normal) 07/07/21 18:01 Urine Ketones Negative (Negative) 07/07/21 18:01 Urine Blood Neg (Negative) 07/07/21 18:01 Urine Nitrate Negative (Negative) 07/07/21 18:01 Urine Bilirubin 1+ (Negative) H 07/07/21 18:01 Urine Urobilinogen 1 mg/dL (Negative) H 07/07/21 18:01 Ur Leukocyte Esterase Negative (Negative) 07/07/21 18:01 Urine RBC None /hpf (0-2) 07/07/21 18:01 Urine WBC None /hpf (0-5) 07/07/21 18:01 Ur Squamous Epith Cells None /hpf (0-5) 07/07/21 18:01 Amorphous Sediment Not Reportable 07/07/21 18:01 Urine Bacteria 1+ /hpf (NONE) H 07/07/21 18:01 Urine Opiates Screen Negative ng/mL (Negative) 07/07/21 18:01 Ur Barbiturates Screen Negative ng/mL (Negative) 07/07/21 18:01 Ur Phencyclidine Scrn Negative ng/mL (Negative) 07/07/21 18:01 Ur Amphetamines Screen Negative ng/mL (Negative) 07/07/21 18:01 U Benzodiazepines Scrn Negative ng/mL (Negative) 07/07/21 18:01 Urine Cocaine Screen Negative ng/mL (Negative) 07/07/21 18:01 U Marijuana (THC) Screen Negative ng/mL (Negative) 07/07/21 18:01 Ethyl Alcohol < 10 mg/dL (0-10) 07/07/21 18:38 Impressions Chest X-Ray 07/07/21 16:21 IMPRESSION: 1. Nonacute. 2. Marked cardiomegaly. Chest CTA 07/07/21 20:01 IMPRESSION: 1. No visible evidence of pulmonary embolism/pulmonary arterial thrombus. 2. Marked cardiomegaly. 3. Coronary artery disease. 4. Small right pleural effusion. 5. Early filling with contrast of the inferior vena cava and hepatic veins often seen with right-sided heart failure. 6. Small volume intraperitoneal ascites. 7. Small 3 mm pulmonary nodule right middle lobe. For patients at low risk (minimal or absent history of smoking and of other known risk factors), no routine follow-up is indicated. For patients at high risk (history of smoking or of other known risk factors), consider optional CT Chest at 12 months. (Reference: Meron). REFERENCES: Meron Lobo, et al. Guidelines for Management of Incidental Pulmonary Nodules Detected on CT Images: From the Fleischner Society 2017. Radiology. 2017;284(1):228-243. Radiation Dose CTDIVOL = (mGy): DLP = 674.08 (mGy-cm) Micro: Microbiology 07/07/21 22:35 Blood Culture - Preliminary Blood SPECIMEN COLLECTED 07/07/21 22:31 Blood Culture - Preliminary Blood SPECIMEN COLLECTED A&P Assessment and plan (1) Swelling of lower limb: Status: Acute (2) Nonischemic cardiomyopathy: Status: Acute (3) Dilated cardiomyopathy: Status: Suspected (4) Congestive heart failure: Status: Acute (5) Abnormal transaminases: Status: Acute (6) Alcoholism: Status: Acute (7) Elevated troponin: Status: Acute Additional A&P Information 66-year-old gentleman with no significant past medical history and follow-up with primary care provider presented to the ER and found to have elevated troponin, elevated proBNP, elevated D-dimer and chest x-ray suggestive of cardiomegaly. Dilated cardiomyopathy/congestive heart failure: Lexiscan negative. Non-ischemic cardiomyopathy. Echo results awaited. Lasix 40 mg IV daily. Coreg 3.125 mg twice daily, aspirin 81 mg oral daily. Strict input output charting. Daily weights. Check D-dimer elevated. CTA negative and lower limb doppler negative. Lower limb swelling: Unlikely cellulitis as patient does not have any fever or erythema. Changes appear c/w stasis dermatitis DVT ruled out. Could be secondary to congestive heart failure. Abnormal transaminases: Could be secondary to h/o alcohol use vs 2/2 dilated cardiomyopathy and congestive heart failure. Alcohol level, drug screen negative. Hepatitis panel pending. Hba1c normal. lipid panel-wnl If needed will do liver ultrasound. For now we will hold off. Full code. Cardiac diet. Lovenox for DVT prophylaxis. Protonix for PUD prophylaxis. Attestations Medical Necessity Statement*: Needs further hospitalisation for CHF 2/2 non ischemic cardiomyopathy Time Spent in Patient Care: Greater than 35 minutes (>than 50% of time spent in counselling and/or direct pt care on unit). 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
[2021-07-08] MEDS: FUROsemide 10 mg/mL SDV 4mL 40 MG IVP (16:12)
--- NOTE | 2021-07-08 18:38 | USCV_ITS ---
Emory Hutchins Age: 66 Gender: M : 1955 Exam Date: 07/08/2021 05:41 Ordering Phys: Jorgito Lujan DO Technologist: Kayli Roger [place] [facility] [place]: RHEUMATIC HEART AND CHF BP: 118 / 85 HR: 84 Rhythm: Sinus Technical Quality: Adequate MEASUREMENTS (Male / Female) Normal Values 2D ECHO LV Diastolic Diameter PLAX 5.1 cm 4.2 - 5.9 / 3.9 - 5.3 cm LV Systolic Diameter PLAX 3.9 cm IVS Diastolic Thickness 1.1 cm 0.6 - 1.0 / 0.6 - 0.9 cm IVS Systolic Thickness 2.0 cm LVPW Diastolic Thickness 1.7 cm 0.6 - 1.0 / 0.6 - 0.9 cm LVPW Systolic Thickness 1.8 cm LVOT Diameter 2.1 cm LV Ejection Fraction 2D Teich 45.1 % LV Ejection Fraction MOD 2C 6.6 % LV Ejection Fraction 2C AL 6.1 % LA Diameter 5.1 cm LA Width 4.8 cm LA Height 5.8 cm RA Width 5.9 cm RA Height 6.9 cm Aorta at Sinotubular Diameter 2.6 cm M-MODE LV Diastolic Diameter MM 3.9 cm 4.2 - 5.9 / 3.9 - 5.3 cm LV Systolic Diameter MM 2.7 cm LV Ejection Fraction MM Teich 59.9 % IVS Diastolic Thickness MM 1.4 cm 0.6 - 1.0 / 0.6 - 0.9 cm IVS Systolic Thickness MM 1.9 cm LVPW Diastolic Thickness MM 1.3 cm 0.6 - 1.0 / 0.6 - 0.9 cm LVPW Systolic Thickness MM 2.1 cm RV Diastolic Diameter MM 1.3 cm Aortic Annulus Diameter 3.6 cm LA Ao Ratio MM 1.5 MV E Point Septal Separation 0.8 cm DOPPLER AV Peak Velocity 297.0 cm/s LVOT Peak Velocity 65.7 cm/s AV Area Cont Eq vti 0.7 cm squared AV Area Cont Eq pk 0.7 cm squared MV Peak Velocity 96.0 cm/s MV Area PHT 4.7 cm squared Mitral E to A Ratio 1.6 MV E' Velocity 67.6 cm/s Mitral E to MV E' Ratio 14.4 Mitral E to LV E' Lateral Ratio 12.3 Mitral E to LV E' Septal Ratio 17.2 TR Peak Velocity 252.5 cm/s TR Peak Gradient 25.5 mmHg TR Mean Velocity 164.7 cm/s TR Mean Gradient 12.8 mmHg TR Velocity Time Integral 66.9 cm TV Peak E Velocity 71.0 cm/s Right Atrial Pressure 15.0 mmHg Pulmonary Artery Systolic Pressu 40.5 mmHg PV Peak Velocity 59.0 cm/s RV Acceleration Time 0.2 s RV Ejection Time 0.4 s RV AcT/ET 0.4 FINDINGS Left Ventricle Mildly increased left ventricular cavity size. Moderate left ventricular hypertrophy of concentric type.left ventricular ejection fraction is estimated at 45 %. Global left ventricular hypokinesis. Grade II/IV diastolic dysfunction, moderately elevated filling pressures. Right Ventricle Normal right ventricular size. Moderate pulmonary hypertension, RVSP 60 mmHg. Right Atrium Moderately increased right atrial size. Left Atrium Severely increased left atrial size. Mitral Valve Moderately thickened mitral valve. Moderate mitral annular calcification. No mitral valve stenosis. Severe mitral valve regurgitation. Aortic Valve Severe aortic valve calcification. Severe aortic valve stenosis, mean gradient 22.4 mmHg, DUONG 0.69 cm squared. Trace aortic valve regurgitation. Tricuspid Valve Severe tricuspid valve regurgitation. Pulmonic Valve Trace pulmonary valve regurgitation. Pericardium Normal pericardium without effusion. Aorta Normal ascending aorta dimension. CONCLUSIONS 1-Mildly increased left ventricular cavity size. Moderate left ventricular hypertrophy of concentric type.left ventricular ejection fraction is estimated at 45 %. Global left ventricular hypokinesis. Grade II/IV diastolic dysfunction, moderately elevated filling pressures. 2-Normal right ventricular size. Moderate pulmonary hypertension, RVSP 60 mmHg. 3-Severely increased left atrial size. 4-Moderately increased right atrial size. 5-Moderately thickened mitral valve. Moderate mitral annular calcification. No mitral valve stenosis. Severe mitral valve regurgitation. 6-Severe aortic valve calcification. Severe aortic valve stenosis, mean gradient 22.4 mmHg, DUONG 0.69 cm squared. Trace aortic valve regurgitation. 7-Severe tricuspid valve regurgitation. 8-Right atrial pressure is around 20 mm of mercury. 9-There are no prior echocardiogram studies to compare. Florecita Abdullahi MD (Electronically Signed) Final Date: 08 July 2021 18:17 S
--- NOTE | 2021-07-08 18:38 | NMCV_ITS ---
NM rick perf SPECT r/s* [id number] Emory Hutchins Age: 66 Gender: M : 1955 Exam Date: 07/08/2021 07:27 Ordering Phys: Jorgito Lujan DO Technologist: OSMANI Medina Exam Location: [facility] Indications: SWOLLEN FEET, FLUID RETENTION STRESS TEST Please see separate stress test report in [facility] for full findings IMAGE PROTOCOL Rest/Stress 1 Lexiscan Day Radiopharmaceutical Dose (mCi) Administration Site Administered by Rest: Tc-99m 10.8 IV OSMANI Najera Sestamibi Stress:Tc-99m 32.7 IV OSMANI Najera Sestamibi Rest: 08-Jul-2021 60 Discovery 630 Stress: 08-Jul-2021 30 Discovery 630 0.4mg Lexiscan. Images obtained in supine and prone position. SPECT RESULTS Technical Quality: Excellent Raw Data Analysis: Normal Image Corrections: No attenuation or motion correction applied Summed Stress Score: 2 Summed Rest Score: 0 Summed Difference Score: 2 PERFUSION FINDINGS Small area of moderately decreased tracer uptake was noted in the basal and mid inferior wall regions. No significant reversibility was noted in these regions. FUNCTIONAL RESULTS (calculated via Gated SPECT) Stress Image LV EF (%): 32 Stress EDV (mL):249 TID: 1.02 Stress ESV (mL):170 FUNCTIONAL FINDINGS: Segmental wall motion analysis revealed diffuse hypokinesia of the left ventricle. IMPRESSIONS 1. Myocardial perfusion imaging revealing small to moderate area of persistent decreased tracer uptake in the inferior wall region, suggestive of myocardial scarring versus attrition artifact. 2. Diminished LV ejection fraction of 32%. 3. Diffuse hypokinesia of the left ventricle. 4. Markedly dilated LV cavity with an end-systolic volume of 170 ml. The above features may suggest some form of nonischemic cardiomyopathy. Clinical correlation recommended. No significant ischemia, based on the above findings Dr Rajendra Merritt MD FACC (Electronically Signed) Final Date: 08 July 2021 14:30 S
--- NOTE | 2021-07-08 18:54 | PC.NURSE ---
Shift Note Frequent safety and comfort rounds continue. Orders and/or nursing care completed as indicated. Patient monitored for response to intervention and treatment(s). Education provided includes[instruction on lasix]. Patient and/or premium service representative verb understanding]. Will continue to monitor.
--- NOTE | 2021-07-08 20:02 | USCV_ITS ---
Emory Hutchins Age: 66 Gender: M : 1955 Exam Date: 07/08/2021 06:12 Ordering Phys: Elias Sprague MD Technologist: Kayli Roger Exam Location: [facility] – [place] Indication: SWOLLEN LEGS HISTORY: Swollen legs PROCEDURES: The venous duplex Doppler examination of both lower extremities was performed in the standard fashion. The following venous structures were evaluated: common femoral vein, profunda vein, proximal portion of the greater saphenous vein, superficial femoral vein, and the popliteal vein. In addition, the posterior tibial and peroneal trunk were evaluated. Serial compression, augmentation maneuvers, and spectral Doppler flow evaluation were performed. FINDINGS: Normal 2-D Doppler and augmentation and compressibility throughout the lower extremity venous structures. Additional imaging through the proximal calf veins also reveals no thrombus. Limited evaluation of the greater saphenous vein is patent with no thrombus. Bilateral lower extremity edema noted. CONCLUSIONS No DVT bilateral lower extremities. Dr. Valencia Herrera DO (Electronically Signed) Final Date: 08 July 2021 09:57 S
[2021-07-08] MEDS: enoxaparin 40 mg/0.4 mL Syringe SUBCUT (20:21)
--- NOTE | 2021-07-08 20:29 | PC.NURSE ---
Shift Note Frequent safety and comfort rounds continue. Orders and/or nursing care completed as indicated. Patient monitored for response to intervention and treatment(s). Education provided includes Lovenox and Pepcid. Patient verbalized complete understanding. Received report from DELANEY Thornton. Patient resting in bed awake, alert and oriented. No s/s of ETOH withdrawal presently. Patient denies pain or other needs. No distress observed. Will continue to monitor.
[2021-07-09] VITALS (9 sets, daily range): BP systolic 97–114; BP diastolic 64–81; PULSE 76–90; RESP 18–22; TEMP 36.5–36.7; O2SAT 96–97
[2021-07-09 05:28] LABS: Alanine Aminotransferase 81 U/L (0-41); Alkaline Phosphatase 99 IU/L (40-130); Anion Gap 12.8 (5-19); Aspartate Amino Transferase 91 U/L (0-40); Blood Urea Nitrogen 29 mg/dL (8-23); Calcium 7.9 mg/dL (8.5-10.5); Carbon Dioxide 24 mmol/L (22-29); Chloride 103 mmol/L (98-107); Globulin 2.1 g/dL (1.3-4.6); Glomerular Filtration Rate 60.4 mL/min (90-130); Glucose 101 mg/dL (65-115); Osmolality Calculated 288 mOsm/kg (285-295); Potassium 3.8 mmol/L (3.5-5.1); Sodium 136 mmol/L (136-145); Total Bilirubin 0.7 mg/dL (0.15-1.2); Total Protein 5.1 g/dL (6.6-8.7)
--- NOTE | 2021-07-09 06:18 | PC.NURSE ---
Shift Note Frequent safety and comfort rounds continue. Orders and/or nursing care completed as indicated. Patient monitored for response to intervention and treatment(s). Education provided includes CHF, leg swelling and fluid restrictions. Patient verbalized complete understanding. Patient denies pain or needs this morning. No distress observed. Will continue to monitor.
--- NOTE | 2021-07-09 08:39 | P.PN_ITS ---
Subjective Subjective: Interval history: No acute events overnight. Patient has remained hemodynamically stable. Overall 5 L negative since admission. On examination laying comfortably in bed. Saturating 96% on room air. Discussed in detail for the etiology and reasons for his heart failure. Vitals/I&O/Wt Last Vital Signs Temp 98.1 F 07/09/21 08:00 Pulse 89 07/09/21 08:00 Resp 20 H 07/09/21 08:00 BP 109/79 07/09/21 08:00 Pulse Ox 96 07/09/21 08:00 07/08/21 07/09/21 07/09/21 22:59 06:59 14:59 Intake Total 240 / 600 Output Total 2250 / 2250 750 / 3000 Balance -2010 / -1650 -750 / -2400 Weight last 48 hrs Weight 103.737 kg Weight 105.687 kg Weight 106.231 kg Weight 109.769 kg Physical Exam Narrative: EXAM NARRATIVE: General: No acute distress, AO x3 HEENT: PERRLA, pupils bilaterally equal and reactive Chest: Normal vesicular breath sounds, b/l lower zone ine crackles, equal good air entry bilaterally CVS: S1-S2 regular, soft pansystolic murmur at apex, soft pansystolic murmur at second intercostal space parasternal in the left 2/6, ejection systolic murmur radiating to carotids 1/6, S3 gallop present Abdomen: Soft, nontender, no organomegaly, bowel sounds present Neuro: No focal deficits, no facial deformity, AO x3, power 5/5 in all limbs Ext: B/L LE edema 3+ pitting up to knee level, changes of stasis dermatitis. No gross cellulitic changes. Data : 07/08/21 04:30 07/09/21 04:10 Micro: Microbiology 07/07/21 22:35 Blood Culture - Preliminary Blood NEGATIVE TO DATE 07/07/21 22:31 Blood Culture - Preliminary Blood NEGATIVE TO DATE A&P Assessment and plan (1) Congestive heart failure: Status: Acute (2) Severe aortic stenosis: Status: Acute (3) Severe mitral regurgitation: Status: Acute (4) Nonischemic cardiomyopathy: Status: Acute (5) Dilated cardiomyopathy: Status: Suspected (6) Abnormal transaminases: Status: Acute (7) Alcoholism: Status: Acute (8) Elevated troponin: Status: Acute (9) Swelling of lower limb: Status: Acute Additional A&P Information 66-year-old gentleman with no significant past medical history and follow-up with primary care provider presented to the ER and found to have elevated troponin, elevated proBNP, elevated D-dimer and chest x-ray suggestive of cardiomegaly. Dilated cardiomyopathy/congestive heart failure: Lexiscan negative. Non-ischemic cardiomyopathy. Echocardiogram done shows an EF of 45% with grade 2 diastolic dysfunction with global LV hypokinesia with moderate pulmonary hypertension, RVSP of 60 mmHg, severe dilated LA, moderately dilated RA, severe , severe MR Net 5.5 L negative since admission. Fluid restriction up to 1500 cc Lasix 40 mg IV daily. Coreg 3.125 mg twice daily, aspirin 81 mg oral daily. Start on lisinopril 5 mg oral daily. Strict input output charting. Daily weights. Most likely patient would need TAVR versus aortic valve replacement. Will consult cardiology for further recommendations. Lower limb swelling: Unlikely cellulitis as patient does not have any fever or erythema. Changes appear c/w stasis dermatitis DVT ruled out. Could be secondary to congestive heart failure. Abnormal transaminases: Could be secondary to h/o alcohol use vs 2/2 dilated cardiomyopathy and congestive heart failure. Alcohol level, drug screen negative, hepatitis panel negative Hba1c normal. lipid panel-wnl If needed will do liver ultrasound. For now we will hold off. Full code. Cardiac diet. Lovenox for DVT prophylaxis. Protonix for PUD prophylaxis. Attestations Medical Necessity Statement*: Requires further hospitalization for management of new diagnosis of nonischemic cardiomyopathy, congestive heart failure in setting of severe , severe MR, severe TR Time Spent in Patient Care: Greater than 35 minutes (>than 50% of time spent in counselling and/or direct pt care on unit) . 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
--- NOTE | 2021-07-09 10:22 | P.CONIM_ITS ---
Providers/Reason For Consult Consulting Physician/Specialty*: Pj Carlin MD/ Cardiology Reason for Consult*: Mitral regurgitation/aortic stenosis Requesting Physician: Dr Sprague Attending Physician: Elias Sprague MD History of Present Illness History of Present Illness Emory Hutchins is a 66 year old male 66 year old male with who does not see primary care physician has a history of rheumatic fever as a child has presented to the hospital with bilateral lower extremity edema and shortness of breath. He has been having symptoms for the last 3 to 4 weeks however recently noticed a worsening. Denies chest pain. Echocardiogram was performed that showed mildly decreased LV systolic function with severe aortic stenosis and severe mitral regurgitation. No prior cardiac history. He was started on IV Lasix. He feels much better today. NT proBNP was significantly elevated and was more than 12,000. Review of Systems General: Reports: 10 or more systems reviewed and unremarkable except in HPI and below Const: Denies: fever(s), chills, body aches, change in appetite, change in weight, malaise, night sweats, diaphoresis, change in sleep pattern, daytime sleepiness or snoring Eyes: Denies: change in vision, blurry vision, photophobia, eye discomfort or eye discharge ENMT: Denies: throat pain, enlarged tonsils, hoarseness, mouth pain, oral sores, dry mouth, tinnitus, nasal congestion or post nasal drip Card: Reports: swelling of feet/ankles and dyspnea on exertion; Denies: chest pain, palpitations, irregular heart rhythm, edema, lightheadedness, syncope, pre-syncope, orthopnea, leg pain with exertion or acrocyanosis Resp: Reports: dyspnea; Denies: productive cough, non-productive cough, wheezing, stridor, pain on inspiration, change in phlegm color, hemoptysis or chest congestion GI: Denies: abdominal pain, nausea, vomiting, hematemesis, coffee ground emesis, dysphagia, heartburn, diarrhea, constipation, bloating, GI cramping, change in bowel habits, pain on defecation, hematochezia or melena : Denies: flank pain, difficulty urinating, dysuria, urinary frequency, urinary urgency, urinary hesitancy, urinary dribbling, difficulty starting urination, change in urine stream, nocturia or hematuria Musc: Denies: neck pain, back pain, extremity pain, joint pain, joint swelling, joint redness, joint stiffness or limited range of motion Neuro: Denies: headache(s), numbness in extremities, weakness in extremities, sensory changes, lack of coordination, difficulty walking, frequent falls, dizziness, vertigo, confusion, Slurred speech present, difficulty communicating thoughts or seizure-like activity Psych: Denies: anxiety, depression, mood swings, panic attacks, hopelessness or irritability Endo: Denies: polyuria, polydipsia, tired all the time, cold intolerance, excessive sweating, flushing or heat intolerance Joey/Lymph: Denies: easy bruising or easy bleeding All/Imm: Denies: tongue swelling, facial swelling or acute wheezing Meds/Allergies Home Medications and Allergies Home Medications Medication Instructions Recorded Confirmed Last Taken Type carvedilol 3.125 mg PO BID 30 Days #60 tab 07/10/21 Unknown Rx ferrous gluconate 324 mg PO BIDWM 30 Days #30 tab 07/10/21 Unknown Rx furosemide [Lasix] 40 mg PO BID 30 Days #60 tab 07/10/21 Unknown Rx lisinopril 5 mg PO DAILY 30 Days #30 tab 07/10/21 Unknown Rx potassium chloride 10 meq PO DAILY #30 cap 07/10/21 Unknown Rx Allergies Allergy/AdvReac Type Severity Reaction Status Date / Time No Known Allergies Allergy Verified 07/07/21 21:06 Current Medications Current Medications Generic Name Dose Route Start Last Admin Trade Name Freq PRN Reason Stop Dose Admin Carvedilol 3.125 mg 07/08/21 09:00 07/08/21 18:03 Carvedilol 3.125 Mg Tablet PO 3.125 mg BID KAVYA Administration Enoxaparin Sodium 40 mg 07/07/21 20:43 07/08/21 20:21 Enoxaparin 40 Mg/0.4 Ml Syringe SUBCUT 40 mg Q24H KAVYA Administration Famotidine 20 mg 07/07/21 20:43 07/08/21 20:21 Famotidine 20 Mg/2 Ml Inj IVP 20 mg Q12H KAVYA Administration Ferrous Gluconate 324 mg 07/08/21 08:00 07/08/21 18:03 Ferrous Gluconate 324 Mg Tablet PO 324 mg BIDWM KAVYA Administration Folic Acid 1 mg 07/08/21 09:00 07/08/21 09:54 Folic Acid 1 Mg Tablet PO 1 mg DAILY KAVYA Administration Furosemide 40 mg 07/08/21 16:00 07/08/21 16:12 Furosemide 10 Mg/Ml Sdv 4ml IVP 40 mg Q24H KAVYA Administration Multivitamins Therapeutic 1 tab 07/08/21 09:00 07/08/21 09:54 Multivitamin Therapeutic Tablet PO 1 tab DAILY KAVYA Administration Thiamine Mononitrate 100 mg 07/08/21 09:00 07/08/21 09:54 Thiamine 100 Mg Tablet PO 100 mg DAILY KAVYA Administration PFSH Acute PFSH: Medical History Abnormal transaminases Alcoholism Dilated cardiomyopathy Elevated troponin Rheumatic fever/heart disease Swelling of lower limb Surgical History No significant past surgical history Family History Other CAD (coronary artery disease) Congestive heart failure (CHF) Social History Smoking and tobacco status: former smoker Second hand smoke exposure: No Smoking risk assessment/counseling performed?: No Alcohol intake: never Desire information about alcohol rehabilitation?: No Counseling given: No Desire information about substance/drug rehabilitation?: No Counseling given: No Adopted: No Caregiver/support person: No Lives independently: Yes Household members: none Housing: House Marital status: Single Number of children: 0 Highest education level completed: High School Graduate service: No History of recent travel: No Vitals/I&O/Wt Last Vital Signs Temp 98.1 F 07/09/21 08:00 Pulse 89 07/09/21 08:00 Resp 20 H 07/09/21 08:00 BP 109/79 07/09/21 08:00 Pulse Ox 96 07/09/21 08:00 07/08/21 07/09/21 07/09/21 22:59 06:59 14:59 Intake Total 240 / 600 Output Total 2250 / 2250 750 / 3000 Balance -2010 / -1650 -750 / -2400 Weight last 48 hrs Weight 228 lb 11.2 oz Weight 233 lb Weight 234 lb 3.2 oz Weight 242 lb Physical Exam Narrative: EXAM NARRATIVE: GENERAL: Patient is alert, awake and oriented x3. [] NECK: No jugular vein distension. [] HEENT: No cyanosis. No icterus. No pallor. [] HEART: Regular S1 and S2. Has grade 3/ 6 systolic murmur, S3 is audible LUNGS: Mild crackles bilaterally ABDOMEN: Soft, nontender and nondistended. Positive bowel sounds. No guarding, rebound or tenderness. [] CENTRAL NERVOUS SYSTEM: Grossly nonfocal. [] EXTREMITIES: Lower extremities with 2+ edema bilaterally. Pulses palpable in the lower extremities, both dorsalis pedis and posterior tibial. [] Data Micro: Micro: Microbiology 07/07/21 22:35 Blood Culture - Pr eliminary Blood NEGATIVE TO LUIS E 07/07/21 22:31 Blood Culture - Pr eliminary Blood NEGATIVE TO LUIS E A&P Assessment and plan (1) Congestive heart failure: Status: Acute (2) Bilateral edema of lower extremity: Status: Acute (3) Elevated transaminase level: Status: Acute (4) Severe mitral regurgitation: Status: Acute (5) Severe aortic stenosis: Status: Acute (6) Congestive heart failure: Status: Acute Patient has presented with congestive heart failure symptoms. Echocardiogram revealed severe aortic stenosis and severe mitral regurgitation. Nuclear stress test was performed that does not show any significant ischemia. 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 Continue IV Lasix. Lisinopril and Coreg. Will need to be uptitrated as outpatient. For complete work-up of valvular heart disease, transesophageal echocardiogram and right and left heart cath will need to be performed. I have discussed this with patient. He wants to proceed with these testing as outpatient. Low-sodium diet advised. Thank you for involving us with care of this patient. We will continue to follow. Please call with questions. 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
[2021-07-09] MEDS: multivitamin therapeutic Tablet 1 TAB PO (11:31)
[2021-07-09] MEDS: thiamine 100 mg Tablet PO (11:31)
[2021-07-09] MEDS: folic acid 1 mg Tablet PO (11:31)
[2021-07-09] MEDS: carvedilol 3.125 mg Tablet PO ×2 (11:31→18:08)
[2021-07-09] MEDS: lisinopril 5 mg Tablet PO (11:32)
[2021-07-09] MEDS: famotidine 20 mg/2 mL INJ IVP ×2 (11:32→20:22)
[2021-07-09] MEDS: ferrous gluconate 324 mg Tablet PO ×2 (11:32→18:08)
[2021-07-09 11:59] LABS: Hepatitis A Antibody IgM Non-Reactive (Nonreactive); Hepatitis B Core AB, Total Non-Reactive (Nonreactive); Hepatitis B Surface AB 3.5 (11.5-1000); Hepatitis B Surface Antigen Non-Reactive (Nonreactive); Hepatitis C Virus Antibody Non-Reactive (Nonreactive)
--- NOTE | 2021-07-09 14:01 | PC.CHAP ---
Pastoral Care Encounter/Spiritual Assessment Type of Contact [] Declined nuclear medicine tech visit [] Patient/Family/Request visit [] Outpatient visit [xx] Follow-up visit [] Physician referral [] Code/Alert [xx] Routine visit [] Staff referral [] Actively dying [] Patient sleeping [] Family support [] [] Out of room [] Palliative care [] [] Receiving care in room [] Pre-surgical visit [] Trauma [xx] Long length of stay [] ICU visit [] Other: Relational/Emotional Strength [xx] Patient feels connected with others/family/visitors/staff [] Distress [] Loneliness/isolation [] Abandonment Spirituality of Patient [] Person of Stacy [] Attends Bahai of their Stacy [xx] Believes in Prayer [] Reads Bible or Anabaptism materials [] There are Spiritual issues to be addressed Educational Director Interventions [xx] Prayer [xx] Active listening [] Non-anxious presence [] Spiritual/emotional support [] Crisis/trauma care [] Spiritual counseling [] Bereavement support [] Provided bereavement packet [] Provided Bible/devotional materials [] Provided toy/stuffed animal, coloring book to patient or family member [] Provided Communion [] Anointing/[place] [] Salvation [xx] Completed spiritual assessment [] Other: Impact on Illness or Injury [] Angry [] Fearful [] Anxious [] Often cries [] Exhaustion [] Unable to work [] Unable to attend sabianism [] Unable to walk/stand [] Unable to read [] Unable to drive [] Unable to eat/drink [] Unable to sleep [] Unable to be with family [] Patient intubated [] Other: Summary Patient stated he is tired of being in hospital. This is 2nd hospitalization since March for heart problems. He wants complete healing. He has difficulty adjusting to life style changes necessary for his benefit. Time spent with patient 5 minutes
--- NOTE | 2021-07-09 14:06 | PC.CHAP ---
Pastoral Care Encounter/Spiritual Assessment Type of Contact [] Declined appliquer visit [] Patient/Family/Request visit [] Outpatient visit [xx] Follow-up visit [] Physician referral [] Code/Alert [xx] Routine visit [] Staff referral [] Actively dying [] Patient sleeping [] Family support [] [] Out of room [] Palliative care [] [] Receiving care in room [] Pre-surgical visit [] Trauma [] Long length of stay [] ICU visit [] Other: Relational/Emotional Strength [xx] Patient feels connected with others/family/visitors/staff [] Distress [] Loneliness/isolation [] Abandonment Spirituality of Patient [xx] Person of Stacy [xx] Attends Muslim of their Stacy [xx] Believes in Prayer [xx] Reads Bible or Episcopalian materials [] There are Spiritual issues to be addressed Winch Stripper Interventions [] Prayer [xx] Active listening [xx] Non-anxious presence [] Spiritual/emotional support [] Crisis/trauma care [] Spiritual counseling [] Bereavement support [] Provided bereavement packet [] Provided Bible/devotional materials [] Provided toy/stuffed animal, coloring book to patient or family member [] Provided Communion [] Anointing/[place] [] Salvation [xx] Completed spiritual assessment [] Other: Impact on Illness or Injury [] Angry [] Fearful [] Anxious [] Often cries [] Exhaustion [] Unable to work [] Unable to attend uatsdin [] Unable to walk/stand [] Unable to read [] Unable to drive [] Unable to eat/drink [] Unable to sleep [] Unable to be with family [] Patient intubated [] Other: Summary Patient is Yarsanism and wants a acute dialysis registered nurse to pray for him. Patient was very pleasant and jovial. Furniture missing out of room except bed was something to joke and laugh about so we did. Time spent with patient 5 minutes
[2021-07-09] MEDS: FUROsemide 10 mg/mL SDV 4mL 40 MG IVP (18:08)
--- NOTE | 2021-07-09 19:55 | PC.NURSE ---
Shift Note Frequent safety and comfort rounds continue. Orders and/or nursing care completed as indicated. Patient monitored for response to intervention and treatment(s). Education provided includes Lasix. Patient verbalized complete understanding stating I have been keeping track of how much I put out. Patient ambulating in [place]. Noted mild SOB with exertion. Denies pain or other needs. No distress observed. Will continue to monitor.
[2021-07-09] MEDS: enoxaparin 40 mg/0.4 mL Syringe SUBCUT (20:22)
[2021-07-10 00:04] VITALS: BP 109/78; PULSE 87; RESP 5
[2021-07-10 00:06] VITALS: TEMP 36.4
[2021-07-10 04:09] VITALS: BP 97/61; PULSE 86; RESP 25; TEMP 36.8
[2021-07-10 04:35] LABS: Basophils % 0.8 %; Eosinophils % 0.8 %; Hematocrit 48.6 % (42.0-52.0); Lymphocytes # 1.4 10^3/uL (0.8-4.8); Lymphocytes % 26.4 %; Mean Corpuscular HGB Conc 32.9 g/dL (30.0-36.0); Mean Corpuscular Hemoglobin 30.9 pg (28.0-34.0); Monocytes # 0.5 10^3/uL (0.2-0.9); Monocytes % 9.8 %; Neutrophils # 3.16 10^3/uL (1.8-7.7); Neutrophils % 61.6 %; Nucleated Red Blood Cells % 0 %; Platelet Count 107 10^3/cmm (130-400); Red Blood Count 5.17 10^6/uL (4.1-5.3); Red Cell Distribution Width 14.6 % (12.1-15.1); White Blood Count 5.1 10^3/uL (4.0-10.0)
[2021-07-10 04:58] VITALS: PULSE 85
[2021-07-10 05:25] LABS: Alanine Aminotransferase 66 U/L (0-41); Albumin Level 3.1 g/dL (3.5-5.2); Alkaline Phosphatase 107 IU/L (40-130); Blood Urea Nitrogen 28 mg/dL (8-23); Calcium 8.2 mg/dL (8.5-10.5); Carbon Dioxide 24 mmol/L (22-29); Chloride 102 mmol/L (98-107); Globulin 2.3 g/dL (1.3-4.6); Glomerular Filtration Rate 74.5 mL/min (90-130); Glucose 91 mg/dL (65-115); Osmolality Calculated 287 mOsm/kg (285-295); Sodium 136 mmol/L (136-145); Total Bilirubin 0.9 mg/dL (0.15-1.2); Total Protein 5.4 g/dL (6.6-8.7)
[2021-07-10 05:45] LABS: Aspartate Amino Transferase 64 U/L (0-40)
--- NOTE | 2021-07-10 05:51 | PC.NURSE ---
Shift Note Frequent safety and comfort rounds continue. Orders and/or nursing care completed as indicated. Patient monitored for response to intervention and treatment(s). Education provided includes Lasix. Patient verbalized complete understanding. Patient up ambulating in [place] at times. Doing well with mild increased SOB with exertion. Will continue to monitor.
[2021-07-10 07:54] VITALS: BP 111/77; PULSE 87; RESP 20; TEMP 36.4; O2SAT 97
--- NOTE | 2021-07-10 08:59 | P.DS_ITS ---
Discharge Providers Date of Admission: 07/07/21 18:14 Date of Discharge: July 10, 2021 Attending Provider at Admission: Elias Sprague MD Attending Provider at Discharge: Elias Sprague MD Consults: Cardiology: Dr. Carlin Diagnoses at Discharge Discharge Diagnosis (1) Congestive heart failure: Status: Acute Permanent problem details: EF 45%, Grade 2DD, global LV hypokinesia, Severe MR, severe , Mod pul HTN, Severely dilate LA, mod dilated RA (2) Severe aortic stenosis: Status: Acute (3) Severe mitral regurgitation: Status: Acute (4) Nonischemic cardiomyopathy: Status: Acute (5) Dilated cardiomyopathy: Status: Suspected (6) Abnormal transaminases: Status: Acute (7) Alcoholism: Status: Acute (8) Elevated troponin: Status: Acute (9) Swelling of lower limb: Status: Acute Reason for Visit Reason for Visit: Swollen feet,Fluid, Sent by [facility] Hospital Course Emory Hutchins is a 66 year old male with no real follow-up with a primary care provider in couple of years presented to the ER from primary care's office. He was seen for the first time today with complains of bilateral leg swelling and discoloration for approximately 4 weeks and weeping for 1 week. Says he has some SOB with activity. Says symptoms are better in the morning and get worse through out the day. Having an increasingly difficult time walking due to swelling. Does not have a PCP and denies any daily medications. Does report history of rheumatic fever and murmur as a child. Denies pain in legs, chest pain, and weight gain. No recent history of URI symptoms. 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 No fever. No cellulitic changes. No past h/o similar LE edema. No recent changes in urien output. no dysuria. No h/o hepatitis. Drinks daily, including wine and beer. Reports making wine at home with several fruits that he collects. 12-14 oz glass consumption daily. No h/o binge drinking. Blood work in the ER showed a white count 7.5, hemoglobin of 17.7, platelet count of 150, sodium of 132, chloride of 99, bicarb of 19 with creatinine of 1.2, BUN of 28, AST/ALT of 158/123 with baseline troponin of 733 and a delta of -21 in 2 hours, proBNP of 11,000, UA negative for nitrite or leukoesterase but 1+ bacteria and chest x-ray imaging as below. Patient admitted to the hospital for further management of lower limb swelling. Echocardiogram was done which showed EF of 45% with severe LVH, severe , severe MR, severely dilated LA, moderately dilated RA, severe TR with moderate pulmonary hypertension. Patient had a new diagnosis of cardiomyopathy. Ischemia was ruled out with a negative Lexiscan. Patient was started on aggressive IV diuresis and was 10 L negative by the day of discharge. Cardiology was consulted. His hospital stay was otherwise unremarkable. Lower limb Dopplers were done which were negative for DVT. CTA was done which is negative for pulmonary embolism. He is been discharged in hemodynamically stable condition on oral carvedilol, lisinopril and oral Lasix with advised to follow-up with his primary care provider on the set date and with chief vendor quality in 2 weeks. Patient has also been advised to follow-up with cardiothoracic surgery in [place] within next 1 month for possible AVR and mitral valve repair. Patient verbalized understanding. Physical Exam Narrative: EXAM NARRATIVE: General: No acute distress, AO x3 HEENT: PERRLA, pupils bilaterally equal and reactive Chest: Normal vesicular breath sounds, b/l lower zone ine crackles, equal good air entry bilaterally CVS: S1-S2 regular, soft pansystolic murmur at apex, soft pansystolic murmur at second intercostal space parasternal in the left 2/6, ejection systolic murmur radiating to carotids 1/6, S3 gallop present Abdomen: Soft, nontender, no organomegaly, bowel sounds present Neuro: No focal deficits, no facial deformity, AO x3, power 5/5 in all limbs Ext: B/L LE edema 3+ pitting up to knee level, changes of stasis dermatitis. No gross cellulitic changes. Discharge Data Data Completed and Pending: Completed Studies During Hospitalization Category Date Time Status CT angio chest PE protcl [id number] Rout ine Cat Scan 07/07/21 20:01 Completed Sestamibi Stress Test Request Routi ne Exams 07/07/21 18:38 Completed XR chest 1V katelynn ble [id number] Stat Exams 07/07/21 16:21 Completed NM rick perf SPECT r/s* [id number] Routin e Nuc Med 07/08/21 18:38 [place] [id number] Routin e Ultrasound 07/08/21 20:02 Completed CV. echo complete * [id number] Routine Ultrasound 07/08/21 18:38 Completed Pending at discharge Category Date Time Status Blood Culture Sta t Lab 07/07/21 22:35 Results Labs from last 24 hours 07/10/21 07/10/21 07/08/21 03:52 03:52 04:30 WBC 5.1 RBC 5.17 Hgb 16.0 Hct 48.6 MCV 94.0 MCH 30.9 MCHC 32.9 RDW 14.6 Plt Count 107 L MPV 12.0 H Neut % (Auto) 61.6 Lymph % (Auto) 26.4 Potter % (Auto) 9.8 Eos % (Auto) 0.8 Baso % (Auto) 0.8 Neut # (Auto) 3.16 Lymph # (Auto) 1.4 Potter # (Auto) 0.5 Eos # (Auto) 0.0 Baso # (Auto) 0.0 Nucleated RBC % (a uto) 0 Nucleated RBCs # 0.0 Sodium 136 Potassium 4.0 Chloride 102 Carbon Dioxide 24 Anion Gap 14.0 BUN 28 H Creatinine 1.0 GFR Calculation 74.5 L Glucose 91 Calculated Osmolal ity 287 Calcium 8.2 L Total Bilirubin 0.9 AST 64 H ALT 66 H Alkaline Phosphata se 107 Total Protein 5.4 L Albumin 3.1 L Globulin 2.3 Hepatitis A IgM Ab Non-reactive Hep Bs Antigen Non-reactive Hep Bs Antibody 3.5 L Hep B Core Total A b Non-reactive Hepatitis C Antibo dy Non-reactive Addt'l Data from Hospital Stay: Laboratory Results WBC 5.1 10^3/uL (4.0- 10.0) 07/10/21 03:52 RBC 5.17 10^6/uL (4.1 -5.3) 07/10/21 03:52 Hgb 16.0 g/dL (11.7-1 6.6) 07/10/21 03:52 Hct 48.6 % (42.0-52.0 ) 07/10/21 03:52 MCV 94.0 fl (80-94) 07/10/21 03:52 MCH 30.9 pg (28.0-34. 0) 07/10/21 03:52 MCHC 32.9 g/dL (30.0-3 6.0) 07/10/21 03:52 RDW 14.6 % (12.1-15.1 ) 07/10/21 03:52 Plt Count 107 10^3/cmm (130 -400) L 07/10/21 03:52 MPV 12.0 fL (7.4-10.4 ) H 07/10/21 03:52 Neut % (Auto) 61.6 % 07/10/21 03:52 Lymph % (Auto) 26.4 % 07/10/21 03:52 Potter % (Auto) 9.8 % 07/10/21 03:52 Eos % (Auto) 0.8 % 07/10/21 03:52 Baso % (Auto) 0.8 % 07/10/21 03:52 Neut # (Auto) 3.16 10^3/uL (1.8 -7.7) 07/10/21 03:52 Lymph # (Auto) 1.4 10^3/uL (0.8- 4.8) 07/10/21 03:52 Potter # (Auto) 0.5 10^3/uL (0.2- 0.9) 07/10/21 03:52 Eos # (Auto) 0.0 10^3/uL (0.0- 0.8) 07/10/21 03:52 Baso # (Auto) 0.0 10^3/uL (0.0- 0.1) 07/10/21 03:52 Nucleated RBC % (a uto) 0 % 07/10/21 03:52 Nucleated RBCs # 0.0 /100WBC 07/10/21 03:52 D-Dimer 2.65 ug/mIFEU (0- 0.59) H 07/07/21 16:31 Sodium 136 mmol/L (136-1 45) 07/10/21 03:52 Potassium 4.0 mmol/L (3.5-5 .1) 07/10/21 03:52 Chloride 102 mmol/L (98-10 7) 07/10/21 03:52 Carbon Dioxide 24 mmol/L (22-29) 07/10/21 03:52 Anion Gap 14.0 (5-19) 07/10/21 03:52 BUN 28 mg/dL (8-23) H 07/10/21 03:52 Creatinine 1.0 mg/dL (0.7-1. 2) 07/10/21 03:52 GFR Calculation 74.5 mL/min (90-1 30) L 07/10/21 03:52 Glucose 91 mg/dL (65-115) 07/10/21 03:52 Estimat Average Gl ucose 117 07/08/21 04:30 Hemoglobin A1c 5.7 % (4.0-6.0) 07/08/21 04:30 Calculated Osmolal ity 287 mOsm/kg (285- 295) 07/10/21 03:52 Calcium 8.2 mg/dL (8.5-10 .5) L 07/10/21 03:52 Phosphorus 3.3 mg/dL (2.5-4. 5) 07/08/21 04:30 Magnesium 1.7 mg/dL (1.7-2. 3) 07/08/21 04:30 Iron 52 ug/dL (59-158) L 07/07/21 18:38 TIBC 235 mcg/dl 07/07/21 18:38 % Saturation 22.1 % (20-50) 07/07/21 18:38 Unsat Iron Binding 183 ug/dL (112-34 7) 07/07/21 18:38 Total Bilirubin 0.9 mg/dL (0.15-1 .2) 07/10/21 03:52 AST 64 U/L (0-40) H 07/10/21 03:52 ALT 66 U/L (0-41) H 07/10/21 03:52 Alkaline Phosphata se 107 IU/L (40-130) 07/10/21 03:52 Troponin T Baselin e 733 ng/L (0-15) H* 07/07/21 16:31 Troponin T 120 Min katya 711.9 ng/L (0-15) H 07/07/21 18:38 Delta Troponin T -21.1 ABS# (0-10) L 07/07/21 18:38 Troponin T Hi Sens 6Hr 708.0 ng/L (0-15) H 07/07/21 22:31 Troponin T Hi Sens 6Hr Delta -25.0 ng/L (0-12) L 07/07/21 22:31 NT-Pro-B Natriuret Pep 51256 pg/mL (0-12 5) H 07/07/21 16:31 Total Protein 5.4 g/dL (6.6-8.7 ) L 07/10/21 03:52 Albumin 3.1 g/dL (3.5-5.2 ) L 07/10/21 03:52 Globulin 2.3 g/dL (1.3-4.6 ) 07/10/21 03:52 Triglycerides 70 mg/dL (0-150) 07/08/21 04:30 Cholesterol 113 mg/dL (0-200) 07/08/21 04:30 LDL Cholesterol, C alc 72 mg/dL (50-129) 07/08/21 04:30 Total VLDL Cholest patricia 14 mg/dL (0-30) 07/08/21 04:30 HDL Cholesterol 27 mg/dL (60-100) L 07/08/21 04:30 Cholesterol/HDL Ra wilson 4.19 mg/dL (1.0-5 .00) 07/08/21 04:30 Procalcitonin 0.22 ng/mL (0-0.5 ) 07/07/21 18:38 TSH 2.65 uIU/mL (0.27 -4.20) 07/07/21 18:38 Urine Color Yellow (Yellow) 07/07/21 18:01 Urine Appearance Clear (CLEAR) 07/07/21 18:01 Urine pH 5 (5-7) 07/07/21 18:01 Ur Specific Gravit y 1.020 (1.005-1.0 30) 07/07/21 18:01 Urine Protein Trace (Negative) 07/07/21 18:01 Urine Glucose (UA) Norm (Normal) 07/07/21 18:01 Urine Ketones Negative (Negati ve) 07/07/21 18:01 Urine Blood Neg (Negative) 07/07/21 18:01 Urine Nitrate Negative (Negati ve) 07/07/21 18:01 Urine Bilirubin 1+ (Negative) H 07/07/21 18:01 Urine Urobilinogen 1 mg/dL (Negative ) H 07/07/21 18:01 Ur Leukocyte Marilyn ase Negative (Negati ve) 07/07/21 18:01 Urine RBC None /hpf (0-2) 07/07/21 18:01 Urine WBC None /hpf (0-5) 07/07/21 18:01 Ur Squamous Epith Cells None /hpf (0-5) 07/07/21 18:01 Amorphous Sediment Not Reportable 07/07/21 18:01 Urine Bacteria 1+ /hpf (NONE) H 07/07/21 18:01 Urine Opiates Scre en Negative ng/mL (N egative) 07/07/21 18:01 Ur Barbiturates Sc reen Negative ng/mL (N egative) 07/07/21 18:01 Ur Phencyclidine S crn Negative ng/mL (N egative) 07/07/21 18:01 Ur Amphetamines Sc reen Negative ng/mL (N egative) 07/07/21 18:01 U Benzodiazepines Scrn Negative ng/mL (N egative) 07/07/21 18:01 Urine Cocaine Scre en Negative ng/mL (N egative) 07/07/21 18:01 U Marijuana (THC) Screen Negative ng/mL (N egative) 07/07/21 18:01 Ethyl Alcohol < 10 mg/dL (0-10) 07/07/21 18:38 Hepatitis A IgM Ab Non-reactive (No nreactive) 07/08/21 04:30 Hep Bs Antigen Non-reactive (No nreactive) 07/08/21 04:30 Hep Bs Antibody 3.5 (11.5-1000) L 07/08/21 04:30 Hep B Core Total A b Non-reactive (No nreactive) 07/08/21 04:30 Hepatitis C Antibo dy Non-reactive (No nreactive) 07/08/21 04:30 Impressions Chest X-Ray 07/07/21 16:21 IMPRESSION: 1. Nonacute. 2. Marked cardiomegaly. Chest CTA 07/07/21 20:01 IMPRESSION: 1. No visible evidence of pulmonary embolism/pulmonary arterial thrombus. 2. Marked cardiomegaly. 3. Coronary artery disease. 4. Small right pleural effusion. 5. Early filling with contrast of the inferior vena cava and hepatic veins often seen with right-sided heart failure. 6. Small volume intraperitoneal ascites. 7. Small 3 mm pulmonary nodule right middle lobe. For patients at low risk (minimal or absent history of smoking and of other known risk factors), no routine follow-up is indicated. For patients at high risk (history of smoking or of other known risk factors), consider optional CT Chest at 12 months. (Reference: Meron). REFERENCES: Meron Lobo et al. Guidelines for Management of Incidental Pulmonary Nodules Detected on CT Images: From the Fleischner Society 2017. Radiology. 2017;284(1):228-243. Radiation Dose CTDIVOL = (mGy): DLP = 674.08 (mGy-cm) Lexiscan IMPRESSIONS 1. Myocardial perfusion imaging revealing small to moderate area of persistent decreased tracer uptake in the inferior wall region, suggestive of myocardial scarring versus attrition artifact. 2. Diminished LV ejection fraction of 32%. 3. Diffuse hypokinesia of the left ventricle. 4. Markedly dilated LV cavity with an end-systolic volume of 170 ml. The above features may suggest some form of nonischemic cardiomyopathy. Clinical correlation recommended. No significant ischemia, based on the above findings Dr Rajendra Merritt MD [facility] (Electronically Signed) Final Date: 08 July 2021 14:30 Lower Limb Doppler CONCLUSIONS No DVT bilateral lower extremities. Echocardiogram CONCLUSIONS 1-Mildly increased left ventricular cavity size. Moderate left ventricular hypertrophy of concentric type.left ventricular ejection fraction is estimated at 45 %. Global left ventricular hypokinesis. Grade II/IV diastolic dysfunction, moderately elevated filling pressures. 2-Normal right ventricular size. Moderate pulmonary hypertension, RVSP 60 mmHg. 3-Severely increased left atrial size. 4-Moderately increased right atrial size. 5-Moderately thickened mitral valve. Moderate mitral annular calcification. No mitral valve stenosis. Severe mitral valve regurgitation. 6-Severe aortic valve calcification. Severe aortic valve stenosis, mean gradient 22.4 mmHg, DUONG 0.69 cm squared. Trace aortic valve regurgitation. 7-Severe tricuspid valve regurgitation. 8-Right atrial pressure is around 20 mm of mercury. 9-There are no prior echocardiogram studies to compare. Florecita Abdullahi MD (Electronically Signed) Final Date: 08 July 2021 18:17 Vitals: Last Vital Signs Temp 97.5 F L 07/10/21 07:54 Pulse 87 07/10/21 07:54 Resp 20 H 07/10/21 07:54 BP 111/77 07/10/21 07:54 Pulse Ox 97 07/10/21 07:54 Discharge Plan Discharge Patient Disposition: Home Condition: Stable Prescriptions: New carvedilol 3.125 mg Tablet 3.125 mg PO BID 30 Days Qty: 60 RF: 0 lisinopril 5 mg Tablet 5 mg PO DAILY 30 Days Qty: 30 RF: 0 ferrous gluconate 324 mg (37.5 mg iron) Tablet 324 mg PO BIDWM 30 Days Qty: 30 RF: 0 potassium chloride 10 mEq capsule, extended release 10 meq PO DAILY Qty: 30 RF: 0 Lasix 40 mg tablet 40 mg PO BID 30 Days Qty: 60 RF: 0 Discontinued aspirin 325 mg Tablet 325 mg PO DAILY RF: 0 Discharge Orders: Discharge Order (Routine); Ordered 07/10/21 Ordered By: Elias Sprague Referrals: Noble Willis DO [Physician] - 07/22/21 1:30 pm (You have a hospital followup with Dr. Willis at [facility] on July 22 at 1:30pm) Pj Carlin M.D [Physician] - 2 weeks Discharge Diet: Cardiac Discharge Activity: Resume usual activity Patient Instructions: Opioid Safety Activity Restrictions/Additional Instructions: Please follow-up with your primary care provider on the set date for repeat CMP. Please follow-up with chief vendor quality within 2 weeks. You should follow-up with cardiothoracic surgeon within next 1 month for further evaluation and management of severe aortic stenosis and severe mitral regurgitation. Discharge Attestations Time Spent in Discharge Care*: greater than 30 min Specific Discharge Activities: educating patient, discussing with pcp/other providers, discussing with assistant case manager/social workers/dc planners, documenting/other paperwork and evaluating patient/reviewing data Status at Discharge: Cognitive status at discharge: cognitively intact , Behavioral status at discharge: cooperative , Functional status at discharge: independent ambulation Overall status at discharge: patient is back to baseline Quality Metrics Clinical Quality Measures During this hospital stay, did patient experience: None Coding Level of Care Code Acute g FW DC note Diagnoses Congestive heart failure I50.9 Severe aortic stenosis I35.0 Severe mitral regurgitation I34.0 Nonischemic cardiomyopathy I42.8 Dilated cardiomyopathy I42.0 Abnormal transaminases R74.8 Alcoholism F10.20 Elevated troponin R77.8 Swelling of lower limb M79.89
--- NOTE | 2021-07-10 09:28 | P.PN_ITS ---
Subjective Subjective: Interval history: Patient is doing well. He is on room air and is amubulating. He wants to go home today Vitals/I&O/Wt Last Vital Signs Temp 97.5 F L 07/10/21 07:54 Pulse 87 07/10/21 07:54 Resp 20 H 07/10/21 07:54 BP 111/77 07/10/21 07:54 Pulse Ox 97 07/10/21 07:54 07/09/21 07/10/21 07/10/21 22:59 06:59 14:59 Intake Total 240 / 240 Output Total 4050 / 4050 550 / 4600 Balance -4050 / -4050 -550 / -4600 240 / 240 Weight last 48 hrs Weight 222 lb 8 oz Weight 228 lb 11.2 oz Physical Exam Narrative: EXAM NARRATIVE: GENERAL: Patient is alert, awake and oriented x3. [] NECK: No jugular vein distension. [] HEENT: No cyanosis. No icterus. No pallor. [] HEART: Regular S1 and S2. Has grade 3/ 6 systolic murmur, S3 is audible LUNGS: Mild crackles bilaterally ABDOMEN: Soft, nontender and nondistended. Positive bowel sounds. No guarding, rebound or tenderness. [] CENTRAL NERVOUS SYSTEM: Grossly nonfocal. [] EXTREMITIES: Lower extremities with 1+ edema bilaterally. Pulses palpable in the lower extremities, both dorsalis pedis and posterior tibial. [] Data : 07/10/21 03:52 07/10/21 03:52 A&P Assessment and plan (1) Congestive heart failure: Status: Acute (2) Bilateral edema of lower extremity: Status: Acute (3) Elevated transaminase level: Status: Acute (4) Severe mitral regurgitation: Status: Acute (5) Severe aortic stenosis: Status: Acute (6) Congestive heart failure: Status: Acute Patient presented with congestive heart failure symptoms. Echocardiogram revealed severe aortic stenosis and severe mitral regurgitation. Nuclear stress test was performed that does not show any significant ischemia. 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 Switch lasix to 40mg BID Continue Lisinopril and Coreg. Will need to be uptitrated as outpatient. For complete work-up of valvular heart disease, transesophageal echocardiogram and right and left heart cath will need to be performed. I have discussed this with patient. He wants to proceed with these testing as outpatient. Low-sodium diet advised. Thank you for involving us with care of this patient. Patient is stable to be discharged from cardiology standpoint. Outpatient cardiology follow up in 2 weeks. Please call with questions. Attestations Medical Necessity Statement*: Care expected to cross 2 midnights. Coding Level of Care Code Acute Drawer Fitter for Barirobyn Estradad Diagnoses Congestive heart failure I50.9 Bilateral edema of lower extremity R60.0 Elevated transaminase level R74.01 Severe mitral regurgitation I34.0 Severe aortic stenosis I35.0 Congestive heart failure I50.9
[2021-07-10] MEDS: folic acid 1 mg Tablet PO (09:41)
[2021-07-10] MEDS: carvedilol 3.125 mg Tablet PO (09:41)
[2021-07-10] MEDS: multivitamin therapeutic Tablet 1 TAB PO (09:41)
[2021-07-10] MEDS: ferrous gluconate 324 mg Tablet PO (09:41)
[2021-07-10] MEDS: famotidine 20 mg/2 mL INJ IVP (09:41)
[2021-07-10] MEDS: thiamine 100 mg Tablet PO (09:41)
[2021-07-10] MEDS: lisinopril 5 mg Tablet PO (09:41)
[2021-07-10 09:50] VITALS: BP 111/77; PULSE 87; RESP 20; TEMP 36.4; O2SAT 97
--- NOTE | 2021-07-10 11:00 | PC.NURSE ---
Discharge Note Patient discharged to home via wheelchair accompanied by patients sister. Discharge instructions reviewed with patient and/or correspondence representative. Mobile pharmacy medications and/or prescriptions provided. 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 Belongings/home medications returned. patient is A & O, understands all discharge orders, medications and follow-up appointments.
== END 2021-07-10 11:03 | disposition home or self-care (01) | DRG 292 ==
LOC: ER 19:24 → CSU 19:30
PROVIDERS: Admitting Provider Student in an Organized Health Care Education/Training Program; Emergency Provider Family Medicine; Visit Provider Student in an Organized Health Care Education/Training Program
DX: I50.41 Acute combined systolic (congestive) and diastolic (congestive) heart failure (principal); I42.0 Dilated cardiomyopathy; F10.20 Alcohol dependence, uncomplicated; Z87.891 Personal history of nicotine dependence; I87.2 Venous insufficiency (chronic) (peripheral); I27.20 Pulmonary hypertension, unspecified; I08.3 Combined rheumatic disorders of mitral, aortic and tricuspid valves; I25.2 Old myocardial infarction
CPT/HCPCS: 36415; 71045; 71275; 78452; 80053; 80061; 80306; 80307; 81001; 83036; 83540; 83550; 83735; 83880; 84100; 84145; 84443; 84484; 85025; 85378; 86705; 86706; 86709; 86803; 87040; 87340; 93005; 93017; 93306; 93970; 94664; 96372; 99285; A9500; J1650; J1940; J2785; J3411; J3490; Q9967

== ENCOUNTER 2021-07-26 07:55 | Outpatient (CLI) | payer SELFPAY ==
--- NOTE | 2021-07-26 08:00 | USCV_ITS ---
Emory Hutchins Age: 66 Gender: M : 1955 Exam Date: 07/26/2021 08:27 Ordering Phys: Sulema Peña AIRCRAFT ELECTRICAL SYSTEMS SPECIALIST-Lizet Technologist: OXANA [place] [facility] [place]: [place]URE Risk Factors: Previous Vascular Surgery: RIGHT LEFT BP: 115.0 / 81.00 BP: 114.0/ 75.00 0 0 Waveform Velocity (cm/s) Velocity (cm/s) Waveform Triphasic 53.1 Iliac Prox 69.9 Triphasic Triphasic 51.6 Iliac Mid 66.9 Triphasic Triphasic 77.2 Iliac Distal 103.9 Triphasic Triphasic 55.2 SCHOOL TEACHER 102.5 Triphasic Triphasic 63.7 SFA Prox 70.9 Triphasic Triphasic 76.9 SFA Mid 73.5 Triphasic Triphasic SFA Dist Triphasic 101.7 81.2 Triphasic 51.3 POP 58.3 Biphasic Biphasic 36.7 DRY CLEANING MACHINE OPERATOR HELPER 48.2 Biphasic Biphasic 46.1 DPA 59.0 Biphasic 1.0 SAYRA 1.0 FINDINGS Minimal plaques in the iliac and femoral arteries bilaterally. Normal resting ABIs bilaterally-1.0 on both sides Normal Doppler flow velocities Near normal Doppler waveforms CONCLUSIONS No significant arterial obstruction, based on the above findings. Dr Rajendra Merritt MD [facility] (Electronically Signed) Final Date: 28 July 2021 07:09 S
== END 2021-07-26 07:56 | disposition home or self-care (01) ==
LOC: US 07:56
PROVIDERS: PCP Nurse Practitioner Family; Visit Provider Nurse Practitioner Family
DX: I50.9 Heart failure, unspecified (principal); I73.9 Peripheral vascular disease, unspecified; M79.89 Other specified soft tissue disorders; R23.0 Cyanosis
CPT/HCPCS: 93925

== ENCOUNTER → 2022-05-12 14:40 | Outpatient (BNVA) | payer SELFPAY | PROVIDERS: PCP Neurological Surgery; Visit Provider Internal Medicine | DX: I42.8 Other cardiomyopathies; I35.0 Nonrheumatic aortic (valve) stenosis; R60.0 Localized edema; I34.0 Nonrheumatic mitral (valve) insufficiency; I50.22 Chronic systolic (congestive) heart failure | CPT/HCPCS: 80048; 83880 ==

== ENCOUNTER 2022-06-02 10:00 | Outpatient (CLI) | payer SELFPAY ==
[2022-06-02 11:21] LABS: Anion Gap 15.2 (5-19); Blood Urea Nitrogen 16 mg/dL (8-23); Calcium 8.7 mg/dL (8.5-10.5); Carbon Dioxide 26 mmol/L (22-29); Chloride 97 mmol/L (98-107); Glucose 90 mg/dL (65-115); NT Pro B Type Natriuretic Pept 11321 pg/mL (0-125); Osmolality Calculated 279 mOsm/kg (285-295); Potassium 4.2 mmol/L (3.5-5.1); Sodium 134 mmol/L (136-145)
== END 2022-06-02 10:01 | disposition home or self-care (01) ==
PROVIDERS: PCP Neurological Surgery; Visit Provider Internal Medicine
DX: I50.9 Heart failure, unspecified (principal)
CPT/HCPCS: 36415; 80048; 83880

== ENCOUNTER 2022-06-16 09:51 | Outpatient (CLI) | payer SELFPAY ==
[2022-06-16 11:36] LABS: Blood Urea Nitrogen 29 mg/dL (8-23); Carbon Dioxide 25 mmol/L (22-29); Chloride 96 mmol/L (98-107); Glomerular Filtration Rate 96.1 mL/min (90-130); Glucose 94 mg/dL (65-115); NT Pro B Type Natriuretic Pept 7746 pg/mL (0-125); Osmolality Calculated 276 mOsm/kg (285-295); Sodium 130 mmol/L (136-145)
[2022-06-16 11:41] LABS: Anion Gap 13.7 (5-19); Potassium 4.7 mmol/L (3.5-5.1)
== END 2022-06-16 09:52 | disposition home or self-care (01) ==
LOC: LAB 09:53
PROVIDERS: PCP Neurological Surgery; Visit Provider Internal Medicine
DX: I50.9 Heart failure, unspecified (principal)
CPT/HCPCS: 36415; 80048; 83880